=== PATIENT | female | born 1985 | race Caucasian/White ===

== ENCOUNTER 2016-11-17 08:28 | Inpatient (IN) | payer OTHER ==
[~2016-11-17] VITALS: Ht 170.2 cm; Wt 60.8 kg
[2016-11-17 20:30] VITALS: BP 124/82
[2016-11-17] MEDS ORDERED: ONDANSETRON 4 MG/2 ML VIAL IM PRN (20:30)
[2016-11-17] MEDS ORDERED: CLONIDINE HCL 0.1 MG TABLET PO PRN (20:30)
[2016-11-17] MEDS ORDERED: MAG HYDROX/AL HYDROX/SIMETH 30 ML LIQUID UDC PO PRN (20:30)
[2016-11-17] MEDS ORDERED: IBUPROFEN 600 MG TABLET PO PRN (20:30)
[2016-11-17] MEDS ORDERED: ACETAMINOPHEN 325 MG TABLET PO PRN (20:30)
[2016-11-17] MEDS ORDERED: BUPRENORPHINE HCL 2 MG TAB.SUBL SL PRN (20:30)
[2016-11-17] MEDS ORDERED: LOPERAMIDE HCL 2 MG CAPSULE PO PRN ×2 (20:30)
[2016-11-17] MEDS ORDERED: diphenhydrAMINE 50 MG CAPSULE PO PRN (20:30)
[2016-11-17] MEDS ORDERED: HYDROXYZINE PAMOATE 25 MG CAPSULE PO PRN (20:30)
[2016-11-17] MEDS ORDERED: LORAZEPAM 2 MG/1 ML VIAL IM PRN (20:30)
[2016-11-17] MEDS ORDERED: METHOCARBAMOL 750 MG TABLET PO PRN (20:30)
[2016-11-17] MEDS ORDERED: MAGNESIUM HYDROXIDE 30 ML LIQUID UDC PO PRN (20:30)
[2016-11-17] MEDS ORDERED: DICYCLOMINE HCL 20 MG TABLET PO PRN (20:30)
[2016-11-17] MEDS ORDERED: LORAZEPAM 1 MG TABLET PO PRN ×2 (20:30)
[2016-11-17] MEDS ORDERED: MIRALAX 17 GM POWD.PACK PO PRN (20:30)
--- NOTE | 2016-11-17 20:30 | NUR ---
Pre-Admission Note Patient was seen in intake office. Patient is noted to be slightly restless and verbalizing increased anxiety. V/S noted as: 124/82, 99, 98.0, 18, 99%, 0/10. Policies on medication disposal explained and understood by patient. Will continue with admission process to unit.
[2016-11-17 21:18] LABS: *URINE HCG, QUAL NEGATIVE (NEGATIVE)
[2016-11-17] MEDS ORDERED: LORAZEPAM 1 MG TABLET ONE (21:29)
[2016-11-17] MEDS ORDERED: LORAZEPAM 1 MG TABLET PO ONE (21:30)
--- NOTE | 2016-11-17 21:30 | NUR ---
Admission Patient is a 31 year old female, from [facility], presented to [facility] to safely received treatment for her substance use. She was escorted on to unit at 2050 by intake department. Skin check and body check rendered with no skin break down noted. Patient was able to provide urine drug screen upon arrival to the unit. Patient is alert and oriented x4. Breathing is even and non labored. Patients height noted at 5'7 and weight noted at 134lbs. Patient verbalized no known allergies, wishes to be full code, following a regular diet. Speech is clear and able to make good eye contact. Patient is noted to be slightly restless and verbalizing increased anxiety but is cooperative with admission process. Lung sounds clear with no cough noted. LBM noted 11/17/16. BUE and BLE all noted WNL with no edema noted. Patient is ambulatory with no assistance needed. Patient denies suicidal and homicidal ideations. Patient is able to verbalizes past medical history of anxiety and depression both diagnosed in 2004. Patients home medications reconciled. Patient verbalizes her use as: Heroin, since the age of 27, but recently relapsed a little over a month ago, using 1GM Via inhalation, with last use prior to admission 1900 using 1GM. Methamphetamines, patient explained its only when its around. Last use 11/15/16 ETOH, its more of a social thing. Last use 11/15/16 Patient is able to verbalize signs and symptoms of withdrawal as "the classic symptoms, nausea, vomiting, restless legs, chills, sweats, headaches." patient reports treatment history x3 with last one noted to be FMI in [facility] in Sep 2016. Admission COWS 2 and CIWA 1. Patient was seen and examined by Dr. Chapin with Ativan 2mg to be given. All information reviewed with Dr. Chapin. PRN Medications for increased signs and symptoms of withdrawal. Labs to be rendered, taper medications to start 11/18/16. Will administer medications accordingly. All needs attended to promptly. Will continue plan of care as ordered.
[2016-11-17 21:34] LABS: *AMPHETAMINE, URINE POSITIVE (NEGATIVE); *BARBITURATE, URINE NEGATIVE (NEGATIVE); *CANNABINOID, URINE NEGATIVE (NEGATIVE); *COCCAINE, URINE NEGATIVE (NEGATIVE); *OPIATE, URINE POSITIVE (NEGATIVE); *PHENCYCLIDINE SCREEN,URINE NEGATIVE (NEGATIVE)
[2016-11-17] MEDS ORDERED: BUSP10TA3 PO (21:38)
[2016-11-17] MEDS ORDERED: METH-406 PO (21:38)
[2016-11-17] MEDS ORDERED: HYDR50CA PO (21:38)
[2016-11-17] MEDS ORDERED: AZEL50GE5 TP (21:38)
--- NOTE | 2016-11-17 21:45 | NUR ---
Medication Administration Patient given 1x dose of Ativan 2mg as per orders for verbalized increased anxiety. CIWA 1 and COWS 2. Will continue to monitor.
[2016-11-17 21:54] LABS: BASOPHILS # (AUTO) 0.1 K/uL (0.0-8.0); BASOPHILS % (AUTO) 0.7 % (0.0-2.0); EOSINOPHILS % (AUTO) 0.3 % (0.0-7.0); HEMOGLOBIN 13.4 G/DL (12.0-16.0); LYMPHOCYTES % (AUTO) 24.8 % (20.5-51.5); MEAN CORPUSCULAR HEMOGLOBIN 28.3 UUG (27.0-31.0); MEAN CORPUSCULAR HGB CONC 34 g/dL (32.0-37.0); MEAN CORPUSCULAR VOLUME 84.6 FL (81.0-99.0); MONOCYTES % (AUTO) 7.8 % (0.0-11.0); NEUTROPHILS # (AUTO) 8.1 K/UL (1.8-8.9); NEUTROPHILS % (AUTO) 66.4 % (38.5-71.5); PLATELET COUNT (AUTO) 335 K/UL (150-450); RED BLOOD CELL COUNT(AUTO) 4.73 MIL/UL (4.2-5.4); WHITE BLOOD COUNT (AUTO) 12.2 K/UL (4.0-11.2)
[2016-11-17 22:07] LABS: ALANINE AMINOTRANSFERASE 20 U/L (14-59); ALKALINE PHOSPHATASE 72 U/L (50-136); ASPARTATE AMINOTRANSFERASE 15 U/L (15-37); BILIRUBIN,TOTAL 0.3 mg/dL (0.2-1.0); CARBON DIOXIDE 28 mmol/L (21-32); CHLORIDE 104 mmol/L (98-107); GLUCOSE 108 mg/dL (74-106); MAGNESIUM 1.7 mg/dL (1.8-2.4); POTASSIUM 3.4 mmol/L (3.5-5.1); TOTAL PROTEIN, SERUM 7.4 g/dL (6.4-8.2); UREA NITROGEN, BLOOD 14 mg/dL (7-18)
[2016-11-17 23:16] LABS: ETHANOL < 3 MG/DL (0-0)
[2016-11-18 00:20] VITALS: BP 106/63
[2016-11-18 04:47] VITALS: BP 110/68
--- NOTE | 2016-11-18 07:04 | NUR ---
End of Shift Patient is in bed sleeping but easily aroused to verbal stimuli. Breathing even and non labored. No signs of pain or discomfort noted. Patient is a 31 year old female admitted on 11/17/16 for Opiate Dependence under the care of Dr. Chapin. A modified 4 day Subutex taper ordered to start 11/18/16 0900. No known allergies. Full Code. Regular Diet. Placed on fall precautions. Skin noted intact. Patient verbalizes past medical history of anxiety and depression. Patient received one time dose of Ativan 2mg upon admission for increased anxiety. Admission COWS 2 and CIWA 1. All needs attended to promptly. Will endorse to continue plan of care as ordered. Addendum: 11/18/16 at 0704 by LUCY GTOTLIEB LVN Amended: Links added.
[2016-11-18] MEDS ORDERED: NAPH15DR62 OP (07:30)
--- NOTE | 2016-11-18 07:30 | NUR ---
START OF SHIFT Pt is a 31 yr old female, A&Ox3. Pt was admitted last night on 11/17/16 for Opiate Dependence and is to start on 4 day Subutex taper today on 11/18/16. Pt is full code, regular diet and NKA. Received report from assembler 1st shift nurse. Pt slept for 9 hours during the night. Last COWS was 2 at 2100. Pt is currently in bed resting with respirations even and unlabored. Pt is c/o back pain 08/28. Facial grimacing is observed. Encouraged increase fluid intake. Pt denies any n/v. Safety precautions observed. Call light is within reach. Will continue to monitor.
[2016-11-18 08:00] VITALS: BP 107/70
[2016-11-18] MEDS: BUPRENORPHINE HCL 2 MG TAB.SUBL SL SCH ×3 (08:30→20:47)
[2016-11-18] MEDS: MULTIVITAMINS,THERAPEUTIC TABLET PO SCH (08:30)
[2016-11-18] MEDS ORDERED: ESCI20TA PO (08:35)
[2016-11-18] MEDS ORDERED: TUBERCULIN,PURIF.PROT.DERIV. 5 TU/0.1 ML TEST ID ONE (09:00)
[2016-11-18] MEDS ORDERED: GABAPENTIN 300 MG CAPSULE PO SCH (09:00)
[2016-11-18] MEDS ORDERED: ESCITALOPRAM OXALATE 30 MG PO SCH (10:45)
[2016-11-18] MEDS: busPIRone 10 MG TABLET PO SCH ×2 (11:00→16:55)
[2016-11-18] MEDS: ARIPIPRAZOLE 2 MG TABLET PO SCH (11:00)
[2016-11-18 12:00] VITALS: BP 127/91
[2016-11-18] MEDS ORDERED: LORAZEPAM 1 MG TABLET PO PRN ×2 (12:15)
--- NOTE | 2016-11-18 12:30 | NUR ---
COMMUNICATION Report to Dr. Chapin in regards to abnormal labs. K+ 3.4 and Mg 1.7. With NO for Potassium Chloride 30meq x1 and Mag-Ox 400mg PO x1. New order initiated by . Will continue to f/u.
[2016-11-18] MEDS ORDERED: POTASSIUM CHLORIDE 10 MEQ CAPSULE.SA PO ONE (13:00)
[2016-11-18] MEDS ORDERED: MAGNESIUM OXIDE 400 MG TABLET PO ONE (13:00)
[2016-11-18] MEDS: DICYCLOMINE HCL 20 MG TABLET PO SCH ×2 (14:37→20:47)
[2016-11-18] MEDS: BACLOFEN 10 MG TABLET PO SCH ×2 (14:37→20:47)
[2016-11-18] MEDS: GABAPENTIN 300 MG CAPSULE PO SCH ×2 (14:37→20:47)
[2016-11-18] MEDS: ONDANSETRON ODT 4 MG TAB.RAPDIS SL PRN ×2 (14:42→20:47)
--- NOTE | 2016-11-18 14:42 | NUR ---
PRN GIVEN Pt was observed with x3 episodes of emesis. Zofran 4mg SL PRN was given as ordered. Medication rene well. Encouraged increase fluid intake. Will continue to monitor.
--- NOTE | 2016-11-18 15:42 | NUR ---
PRN RE-ASSESSMENT Zofran PRN was effective. Pt denies any n/v. Encouraged increase fluid intake. Will continue to monitor.
[2016-11-18 16:00] VITALS: BP 137/89
--- NOTE | 2016-11-18 18:54 | NUR ---
END OF SHIFT Pt is a 31 yr old female, A&Ox4. Pt was admitted on 11/17/16 for Opiate Dependence and started on 4 day Subutex taper. Pt is full code, regular diet and NKA. Pt has been cooperative with plan of care and attended group sessions. Pt has been cooperative with medication regimen. Zofran 4mg SL PRN was given at 1442 for episodes of vomiting. Medication was effective. Skin is intact, warm and moist to touch. No tremors seen or felt. Last COWS score was 4, CIWA score was 2 at 1600. Encouraged increase fluid intake. Pt denies any n/v. Safety precautions observed. Call light is within reach.
--- NOTE | 2016-11-18 19:15 | NUR ---
Start of Shift Patient Received. Patient is in bed awake, alert and verbally responsive. Patient is a 31 year old female admitted on 11/17/16 for Opiate Dependence under the care of Dr. Chapin. Patient was started on a 4 day Subutex taper. No known allergies. Full Code. Regular Diet. Placed on fall precautions. Skin noted intact. Patient verbalizes past medical history of anxiety and depression. Potassium and Magnesium supplemented. Patient was given PRN Zofran for increased nausea. PPD administered to left forearm. Last noted COWS 4 and CIWA 2. All needs attended to promptly. Will endorse to continue plan of care as ordered.
[2016-11-18 20:08] VITALS: BP 126/85
[2016-11-18] MEDS: CLONIDINE HCL 0.1 MG TABLET PO SCH (20:47)
--- NOTE | 2016-11-18 20:47 | NUR ---
PRN Medication Administration Patient is verbalizing increased nausea with one episode of emesis. Patient also noted with CIWA of 13 with increase tremors, anxiety, and agitation. PRN Zofran and PRN Ativan 1mg administered as per order. Will continue to monitor
--- NOTE | 2016-11-18 22:00 | NUR ---
PRN Medication Reassessment Patient is noted in bed watching TV. Patient is able to verbalize PRN Zofran was effective in minimizing nausea. Patient also noted with a CIWA of 1. PRN Ativan 1mg noted to be effective. Will continue to monitor. Addendum: 11/18/16 at 2207 by LUCY GOTTLIEB LVN Amended: Links added.
[2016-11-19 00:33] VITALS: BP 93/52
[2016-11-19 04:41] VITALS: BP 92/56
--- NOTE | 2016-11-19 07:02 | NUR ---
End of Shift Patient is in bed sleeping. Breathing even and non labored. No signs of pain or discomfort noted. Patient is a 31 year old female admitted on 11/17/16 for Opiate Dependence under the care of Dr. Chapin. Patient continues on a 4 day Subutex taper. No known allergies. Full Code. Regular Diet. Placed on fall precautions. Skin noted intact. Patient verbalizes past medical history of anxiety and depression. Patient was given PRN Zofran for increased nausea and PRN Ativan 1mg for CIWA 13. Last noted COWS 10 and CIWA 13. Patient slept a total of 8 hours. All needs attended to promptly. Will endorse to continue plan of care as ordered.
--- NOTE | 2016-11-19 07:33 | NUR ---
START OF SHIFT Pt is a 31 yr old female, A&Ox3. Pt was admitted on 11/17/16 for Opiate Dependence and is on 4 day Subutex taper today on 11/18/16. Pt is full code, regular diet and NKA. Received report from film processing shift supervisor nurse. Pt received Ativan PRN and Zofran PRN during the night. medication was effective. Pt slept for 8 hours. Last COWS was 10 at 2000 and CIWA score 1 at 2200. Pt is currently in bed resting with respirations even and unlabored. Skin is intact, warm and dry to touch. Encouraged increase fluid intake. Pt denies any n/v. Safety precautions observed. Call light is within reach. Will continue to monitor.
[2016-11-19 08:12] VITALS: BP 93/51
[2016-11-19] MEDS: CLONIDINE HCL 0.1 MG TABLET PO SCH (08:46)
[2016-11-19] MEDS: busPIRone 10 MG TABLET PO SCH ×2 (08:46→16:59)
[2016-11-19] MEDS: MULTIVITAMINS,THERAPEUTIC TABLET PO SCH (08:47)
[2016-11-19] MEDS: DICYCLOMINE HCL 20 MG TABLET PO SCH ×3 (08:47→20:55)
[2016-11-19] MEDS: BACLOFEN 10 MG TABLET PO SCH (08:47)
[2016-11-19] MEDS: ARIPIPRAZOLE 2 MG TABLET PO SCH (08:47)
[2016-11-19] MEDS: GABAPENTIN 300 MG CAPSULE PO SCH ×3 (08:47→20:55)
[2016-11-19] MEDS: ESCITALOPRAM OXALATE 10 MG TABLET PO SCH (08:47)
[2016-11-19] MEDS ORDERED: BUPRENORPHINE HCL 2 MG TAB.SUBL SL SCH (09:00)
[2016-11-19] MEDS ORDERED: LORAZEPAM 1 MG TABLET PO PRN ×3 (10:00→13:45)
--- NOTE | 2016-11-19 10:20 | NUR ---
Therapist prompted client for groups. Client stated she will attend groups if she is not so tired later.
[2016-11-19 11:06] LABS: HEPATITIS B SURFACE AG Negative (Negative)
[2016-11-19 12:00] VITALS: BP 101/68
[2016-11-19] MEDS: BUPRENORPHINE HCL 2 MG TAB.SUBL SL SCH ×2 (14:24→21:02)
--- NOTE | 2016-11-19 14:24 | NUR ---
PRN GIVEN Pt reported of x1 emesis and continue to feel nauseous. Zofran 4mg IM PRN was given as ordered. Medication rene well. Encouraged increase fluid intake. Will continue to monitor.
--- NOTE | 2016-11-19 14:58 | NUR ---
PRN RE-ASSESSMENT Zofran IM PRN was effective. Pt denies any n/v. Encouraged increase fluid intake. Will continue to monitor.
[2016-11-19 16:00] VITALS: BP 103/68
--- NOTE | 2016-11-19 18:51 | NUR ---
END OF SHIFT Pt is a 31 yr old female, A&Ox4. Pt was admitted on 11/17/16 for Opiate Dependence and is on 4 day Subutex taper. Pt is full code, regular diet and NKA. Pt has been cooperative with plan of care and attended group sessions. Pt has been cooperative with medication regimen. Zofran 4mg IM PRN was given at for episodes of vomiting. Medication was effective. Pt denies any n/v. Skin is intact, warm and moist to touch. Slight tremors are observed. Pt denies any pain. Last COWS score was 6, CIWA score was 3 at 1600. Encouraged increase fluid intake. Safety precautions observed. Call light is within reach.
[2016-11-19 20:00] VITALS: BP 109/66
--- NOTE | 2016-11-19 20:00 | NUR ---
START OF SHIFT Patient is a 31-year-old female admitted 11/17/16 for opiate dependence, placed on a modified Subutex taper. Patient reports smoking 1 gram of heroin daily, methamphetamines only when available, and alcohol socially. Past medical history of anxiety and depression. Pt is NKA, FULL CODE, on a regular diet, and fall precautions. Upon assessment, patient reports feeling fatigued, skin is noted with moderate sweat, pt reports mild body aches, respirations even and unlabored, denies SOB and chest pain, denies N/V/D, skin is intact. Medications due. Safety measures in place, call light in place, siderails up x2, bed locked and in low position. Will continue to monitor.
[2016-11-19] MEDS: BACLOFEN 20 MG TABLET PO SCH (20:55)
[2016-11-19] MEDS ORDERED: CLONIDINE HCL 0.1 MG TABLET PO SCH (21:00)
--- NOTE | 2016-11-19 21:30 | NUR ---
MEDICATION REFUSAL Patient refused scheduled Clonidine 0.1mg. Education provided, risks and benefits explained x3. Safety measures in place, will continue to monitor.
--- NOTE | 2016-11-20 | NUR ---
VITAL SIGNS Patient vital signs as follows: BP 100/61, HR , RR 16, 98%, 97.4 F, no pain. COWS/CIWA deferred due to patient sleeping. To assess while patient is awake as ordered. Safety measures in place, will continue to monitor.
[2016-11-20 00:01] VITALS: BP 100/61
[2016-11-20 04:00] VITALS: BP 103/68
--- NOTE | 2016-11-20 04:00 | NUR ---
VITAL SIGNS BP 103/68, HR 68, RR 16, O2 sat 98%, temp. 98.8 F, pain 0/10. CIWA/COWS deferred, patient sleeping, to assess while patient is awake as ordered. Safety measures in place, will continue to monitor.
--- NOTE | 2016-11-20 07:00 | NUR ---
END OF SHIFT Patient is a 31-year-old female admitted 11/17/16 for opiate dependence, placed on a modified Subutex taper. Patient reports smoking 1 gram of heroin daily, methamphetamines only when available, and alcohol socially. Past medical history of anxiety and depression. Pt is NKA, FULL CODE, on a regular diet, and fall precautions. During shift, patient reported feeling fatigued, skin is noted with moderate sweat, pt reported mild body aches, scheduled taper medications were administered. CIWA 2 COWS 3. No PRN medication administered during shift. Scheduled Clonidine 0.1mg refused. Education provided. Patient slept for 7 hours, intake 1000mL, void x2, stool x1. Safety measures in place, call light in place, siderails up x2, bed locked and in low position. Endorsed to day shift nurse.
[2016-11-20 08:00] VITALS: BP 116/68
--- NOTE | 2016-11-20 08:07 | NUR ---
START OF SHIFT Pt is a 31 yr old female, A&Ox3. Pt was admitted on 11/17/16 for Opiate Dependence and is on 4 day Subutex taper. Pt is full code, regular diet and NKA. Received report from overnight cashier nurse. Pt slept for 7 hours. Last COWS was 3, CIWA score was 2 at 2000. No PRN's were given during the night. Pt is currently in bed resting with respirations even and unlabored. No acute distress noted. Skin is intact, warm and dry to touch. Encouraged increase fluid intake. Pt denies any n/v. Safety precautions observed. Call light is within reach. Will continue to monitor.
[2016-11-20] MEDS: ONDANSETRON ODT 4 MG TAB.RAPDIS SL PRN (08:54)
--- NOTE | 2016-11-20 08:54 | NUR ---
PRN GIVEN/MEDICATION REFUSED Pt is c/o nausea but denies any episodes of vomiting. Zofran 4mg SL PRN was given as ordered. Encouraged increase fluid intake. Pt refused to take Subutex 2mg SL as ordered at 0900. Pt states, "it makes me feel sick" Pt was educated on medication regimen. Pt was able to verbalize understanding, but continues to refuse. Dr. Chapin is made aware.
[2016-11-20] MEDS: GABAPENTIN 300 MG CAPSULE PO SCH ×3 (08:56→20:44)
[2016-11-20] MEDS: DICYCLOMINE HCL 20 MG TABLET PO SCH ×3 (08:56→20:44)
[2016-11-20] MEDS: busPIRone 10 MG TABLET PO SCH ×2 (08:56→18:04)
[2016-11-20] MEDS: ESCITALOPRAM OXALATE 10 MG TABLET PO SCH (08:56)
[2016-11-20] MEDS: ARIPIPRAZOLE 2 MG TABLET PO SCH (08:56)
[2016-11-20] MEDS: FAMOTIDINE 20 MG TABLET PO SCH (08:56)
[2016-11-20] MEDS: MULTIVITAMINS,THERAPEUTIC TABLET PO SCH (08:56)
[2016-11-20] MEDS: BACLOFEN 20 MG TABLET PO SCH ×3 (08:56→20:44)
[2016-11-20] MEDS: BUPRENORPHINE HCL 2 MG TAB.SUBL SL SCH ×2 (09:00→14:04)
--- NOTE | 2016-11-20 10:02 | NUR ---
PRN REASSESSMENT Zofran PRN was effective. Pt denies any n/v. Encouraged increase fluid intake. Will continue to monitor.
[2016-11-20 12:00] VITALS: BP 119/75
--- NOTE | 2016-11-20 14:31 | NUR ---
MEDICATION REFUSED/ENDORSEMENT GIVEN Pt refused to take Subutex 2mg SL as scheduled at 1500. Pt was educated medication regimen but states "It makes me feel sick" COWS score is 2, CIWA score is 3. Pt is c/o mild headache and mild nausea with no episodes of vomiting. Pt was offered Zofran 4mg IM PRN or Zofran 4 mg SL PRN for nausea and Motrin 400mg PO PRN headache. Pt refused medication and stated, "I don't want to keep taking meds" Anna tomasz and saltine crackers were given. Pt was appreciated. Dr. Chapin is made aware. Endorsed to RN nurse to continue with care.
[2016-11-20 16:56] VITALS: BP 122/76
--- NOTE | 2016-11-20 18:57 | NUR ---
D/C NOTE 31 yr old female admitted on 11/17/16 for Opiate Dependence and is on 4 day Subutex taper. Pt is full code, regular diet and NKA. No PRNs administered throughout shift. Pt refused meds aware, pt is medically stable for discharge. Most recent COWS 2 and CIWA 1. V/S remain WNL. Safety precautions observed. Call light is within reach. Night nurse will continue to monitor.
[2016-11-20] MEDS ORDERED: METH-406 PO (19:07)
[2016-11-20] MEDS ORDERED: HYDR-3895 PO (19:07)
[2016-11-20] MEDS ORDERED: DIPH50CA37 PO (19:07)
[2016-11-20] MEDS ORDERED: GABA-534 PO (19:07)
[2016-11-20] MEDS ORDERED: ONDA4TAB11 SL (19:07)
[2016-11-20] MEDS ORDERED: ARIP2TAB3 PO (19:07)
[2016-11-20] MEDS ORDERED: FAMO20TA8 PO (19:07)
[2016-11-20] MEDS ORDERED: DICY20TA28 PO (19:07)
[2016-11-20] MEDS ORDERED: ESCI10TA PO (19:07)
[2016-11-20] MEDS ORDERED: IBUP-1955 PO (19:07)
[2016-11-20 20:00] VITALS: BP 122/82
--- NOTE | 2016-11-20 20:00 | NUR ---
Start of Shift Pt is a 31 year old female admitted for Opiate dependence, placed on Subutex taper, completed. Pt reported using Heroin via smoke 1g/daily. Reported using Methamphetamine only when available and ETOH socially. NKA, regular diet, fall precautions and full code. PMH: Anxiety and depression. Upon assessment, pt reports feeling mildly anxious with mild body aches. Respirations even/unlabored, denies SOB/chest pain, denies n/v/d, skin is intact. Medications due. Pt is scheduled for discharge tomorrow. Safety measures in place, call light within reach, side rails up x2, bed locked and in low position. Will continue to monitor.
--- NOTE | 2016-11-20 20:50 | NUR ---
PRN Administration Pt requests aid to help her sleep. Benadryl 50mg PRN administered. Safety measures in place. Will continue to monitor.
--- NOTE | 2016-11-20 21:50 | NUR ---
PRN Reassessment Pt is asleep, no s/s of acute distress noted. respirations even/unlabored. Safety measures in place. Will continue to monitor.
[2016-11-21] VITALS: BP 113/66
--- NOTE | 2016-11-21 | NUR ---
Vital Signs BP 113/66, pulse 72, resp 17, SpO2 99% room air, temp 98, no reports of pain COWS/CIWA deferred d/t pt sleeping, to assess while pt is awake as ordered. Safety measures in place. Will continue to monitor.
--- NOTE | 2016-11-21 04:00 | NUR ---
Pt refused to be woken up for 0400 VS Assessment COWS/CIWA deferred d/t pt sleeping, to assess while pt is awake as ordered. Safety measures in place. Will continue to monitor.
--- NOTE | 2016-11-21 07:00 | NUR ---
End of Shift Pt is a 31 year old female admitted for Opiate dependence, placed on Subutex taper, completed. Pt reported using Heroin via smoke 1g/daily. Reported using Methamphetamine only when available and ETOH socially. NKA, regular diet, fall precautions and full code. PMH: Anxiety and depression. During shift, pt reported feeling mildly anxious with mild body aches scheduled medications administered, effective in management of s/s, CIWA 1 and COWS 1. Benadryl 50mg PRN administered for sleep, effective. Pt slept for 7 hours, intake of 855 ml PO, voids x2 and stool x0. Pt is scheduled for discharge today. Safety measures in place, call light within reach, side rails up x2, bed locked and in low position. Endorsed to days shift nurse.
--- NOTE | 2016-11-21 07:01 | NUR ---
Start of Shift Notes: Received patient in her room. Alert and verbally responsive. Oriented x 4. Able to make needs known. Respirations even and unlabored. No SOB noted. Skin warm and dry to touch. Abdomen soft and non-distended with (+) BS in all 4 quadrants. No complains of N/V/D or constipation noted at this time. Bladder non-distended. No complains of dysuria noted. Voids independently. Ambulatory ad annemarie with steady gait. Patient is a 31 year old female admitted for opiate and meth dependence who was placed on a 4-day modified Subutex taper as ordered. No adverse reactions noted. Patient completed taper and will be discharging today. Has past medical hx of anxiety and depression. NKA. FULL CODE. Regular diet. On fall and seizure precautions. Educated patient on the discharge process. Patient verbalized good understanding. Will continue to monitor.
[2016-11-21 08:00] VITALS: BP 115/80
[2016-11-21] MEDS: FAMOTIDINE 20 MG TABLET PO SCH (08:14)
[2016-11-21] MEDS: ARIPIPRAZOLE 2 MG TABLET PO SCH (08:14)
[2016-11-21] MEDS: ESCITALOPRAM OXALATE 10 MG TABLET PO SCH (08:14)
[2016-11-21] MEDS: GABAPENTIN 300 MG CAPSULE PO SCH (08:14)
[2016-11-21] MEDS: MULTIVITAMINS,THERAPEUTIC TABLET PO SCH (08:14)
[2016-11-21] MEDS: busPIRone 10 MG TABLET PO SCH (08:14)
[2016-11-21] MEDS: BACLOFEN 20 MG TABLET PO SCH (08:14)
[2016-11-21] MEDS: ONDANSETRON ODT 4 MG TAB.RAPDIS SL PRN (08:14)
[2016-11-21] MEDS: DICYCLOMINE HCL 20 MG TABLET PO SCH (08:14)
--- NOTE | 2016-11-21 08:14 | NUR ---
Zofran 4 mg SL given/Motrin 600 mg PO given: Patient complains of nausea and 4//10 headache. Medicated patient with Zofran 4 mg SL and Motrin 600 mg PO as ordered. Will monitor for effectiveness.
[2016-11-21] MEDS ORDERED: BUPRENORPHINE HCL 2 MG TAB.SUBL SL SCH (09:00)
--- NOTE | 2016-11-21 09:00 | NUR ---
Discharge Instructions: Patient education provided regarding patient's discharge instructions. Patient verbalized good understanding of all teachings. All discharge paperwork necessary were signed and placed inside duffel bag. All clothings, medications and valuables were returned to the patient. VS stable. COWS 3/CIWA 3.
--- NOTE | 2016-11-21 09:18 | NUR ---
Re-assessment: Per patient PRN Vistaril and Motrin were highly effective in reducing headache and nausea.
--- NOTE | 2016-11-21 09:30 | NUR ---
Discharged: Patient left the unit at this time. Escorted by RECEIVABLES SPECIALIST. Patient left with medications, valuables, toiletries and clothings in stable condition. Picked up by [facility] to be transported to [facility].
== END 2016-11-21 09:30 | disposition other institution (70) | DRG 895 ==
LOC: SRC 19:47
PROVIDERS: ADMIT Internal Medicine; ATTEND Internal Medicine
PROC: HZ2ZZZZ Detoxification Services for Substance Abuse Treatment (ICD-10-PCS; principal; 2016-11-17)
PROC: HZ41ZZZ Group Counseling for Substance Abuse Treatment, Behavioral (ICD-10-PCS; 2016-11-18)
PROC: HZ31ZZZ Individual Counseling for Substance Abuse Treatment, Behavioral (ICD-10-PCS; 2016-11-19)
DX: F11.23 Opioid dependence with withdrawal (principal); F33.2 Major depressive disorder, recurrent severe without psychotic features; F15.10 Other stimulant abuse, uncomplicated; F41.9 Anxiety disorder, unspecified; Z81.3 Family history of other psychoactive substance abuse and dependence; F17.210 Nicotine dependence, cigarettes, uncomplicated; F10.10 Alcohol abuse, uncomplicated; Y90.9 Presence of alcohol in blood, level not specified; E87.6 Hypokalemia; E83.42 Hypomagnesemia; Z79.899 Other long term (current) drug therapy; R73.9 Hyperglycemia, unspecified; D72.829 Elevated white blood cell count, unspecified
CPT/HCPCS: 36415; 70030-TC; 80307; 80324; 80361; 83735; 84703; 85025; 86580; 86592; 86705; 86803; 87340; 87806; A4663; G0480; J2405; Q0162; Q0163

== ENCOUNTER 2017-01-17 15:06 | Inpatient (IN) | payer OTHER ==
[~2017-01-17] VITALS: Ht 170.2 cm; Wt 65.8 kg
[~2017-01-17 15:06] MED LIST: ARIP2TAB3 PO; BUSP10TA3 PO; DICY20TA28 PO; DIPH50CA37 PO; ESCI10TA PO; ESCI20TA PO; FAMO20TA8 PO; GABA-534 PO; HYDR-3895 PO; IBUP-1955 PO; METH-406 PO; ONDA4TAB11 SL
[2017-01-17 16:28] LABS: *URINE HCG, QUAL NEGATIVE (NEGATIVE)
[2017-01-17] MEDS ORDERED: MAG HYDROX/AL HYDROX/SIMETH 30 ML LIQUID UDC PO PRN (16:30)
[2017-01-17] MEDS ORDERED: LORAZEPAM 2 MG/1 ML VIAL IM PRN (16:30)
[2017-01-17] MEDS ORDERED: HYDROXYZINE PAMOATE 25 MG CAPSULE PO PRN (16:30)
[2017-01-17] MEDS ORDERED: BUPRENORPHINE HCL 2 MG TAB.SUBL SL PRN (16:30)
[2017-01-17] MEDS ORDERED: MIRALAX 17 GM POWD.PACK PO PRN (16:30)
[2017-01-17] MEDS ORDERED: LOPERAMIDE HCL 2 MG CAPSULE PO PRN ×2 (16:30)
[2017-01-17] MEDS ORDERED: ONDANSETRON 4 MG/2 ML VIAL IM PRN (16:30)
[2017-01-17] MEDS ORDERED: ACETAMINOPHEN 325 MG TABLET PO PRN (16:30)
[2017-01-17] MEDS ORDERED: METHOCARBAMOL 750 MG TABLET PO PRN (16:30)
[2017-01-17] MEDS ORDERED: LORAZEPAM 1 MG TABLET PO PRN (16:30)
[2017-01-17] MEDS ORDERED: MAGNESIUM HYDROXIDE 30 ML LIQUID UDC PO PRN (16:30)
[2017-01-17] MEDS ORDERED: diphenhydrAMINE 50 MG CAPSULE PO PRN (16:30)
[2017-01-17 16:40] LABS: *AMPHETAMINE, URINE POSITIVE (NEGATIVE); *BARBITURATE, URINE NEGATIVE (NEGATIVE); *CANNABINOID, URINE NEGATIVE (NEGATIVE); *COCCAINE, URINE NEGATIVE (NEGATIVE); *OPIATE, URINE POSITIVE (NEGATIVE); *PHENCYCLIDINE SCREEN,URINE NEGATIVE (NEGATIVE)
[2017-01-17] MEDS ORDERED: LORAZEPAM 1 MG TABLET PO ONE (16:45)
[2017-01-17 17:00] VITALS: BP 128/74
[2017-01-17] MEDS: CLONIDINE HCL 0.1 MG TABLET PO PRN (17:23)
[2017-01-17] MEDS: ONDANSETRON ODT 4 MG TAB.RAPDIS SL PRN (17:23)
--- NOTE | 2017-01-17 18:06 | NUR ---
Admission Note VS: BP: 128/74 HR: 85, SpO2: 99% RA, RR: 16, Temp: 97.9 Pain: 3 Height:5'7" Weight: 145LB Allergies: ENRIKE Pt is a 31 y/o female admitted to [facility] on 01/17/17 at 1600. Pt has been admitted for Heroin, Meth and Alcohol dependence under the care of Dr. Chapin. Pt reports occasional use of Xanax. Pt denies suicidal and homicidal ideations at this time. Pt denies Chest Pain and SOB. Pt did not bring home medications with her. Pt reports living with at sober living. Upon assessment skin integrity is intact. Pt denies experiencing any falls in the last year. COWS 7, CIWA 5 upon admission for mild anxiety, chills, sweats and nausea. A/Ox4 and able to answer questions necessary for the admission process. Pt denies having a PCP. Full Code. VS WNL, Regular Diet. Pt reports Regular Diet. Pt denies Hx of seizures. Pt denies any history of suicide attempts. Breathing is even and unlabored, SpO2 is 99% on RA. Pt ambulates with steady gait. Pt reports regular daily BM. Pt reports smoking half a pack of cigarettes a day. Urine has been collected for UDS and test. All needs have been met. Pt has been oriented to the room and the unit. All safety measures in place per hospital policy. Bed in lowest position, side rails up x2 and padded, call-light within reach. Will continue to monitor. Substance Abuse: 1. Heroin: IV 1g daily for 5 days. Last Use: 01/16/17 1g at 2200 2. Alcohol: drinks 1 pint of vodka daily for 5 days. Last use: 01/16/17 1pint of vodka at 2200 3. Meth: smokes "$20 worth" daily for 5 days. Last use: 01/17/17 in am 4. Xanax: reports occasionally using Xanax, used once in the last five days, can't remember when.
--- NOTE | 2017-01-17 19:05 | NUR ---
End of Shift Endorsed pt to nightshift nurse. Pt is a 31 y/o female admitted to [facility] on 01/17/17 at 1600. Pt has been admitted for Heroin, Meth and Alcohol dependence under the care of Dr. Chapin. Pt reports occasional use of Xanax. Pt denies suicidal and homicidal ideations at this time. Pt denies Chest Pain and SOB. Pt did not bring home medications with her. Pt reports living with at sober living. Upon assessment skin integrity is intact. Pt denies experiencing any falls in the last year. COWS 7, CIWA 5 upon admission for mild anxiety, chills, sweats and nausea. Pt has received PRN clonidine and Zofran and one time dose of Ativan 2mg per Dr. Chapin .A/Ox4 and able to answer questions necessary for the admission process. Pt denies having a PCP. Full Code. VS WNL, Regular Diet. Pt reports Regular Diet. Pt denies Hx of seizures. Pt denies any history of suicide attempts. Breathing is even and unlabored, SpO2 is 99% on RA. Pt ambulates with steady gait. Pt reports regular daily BM. Pt reports smoking half a pack of cigarettes a day. Urine has been collected for UDS and test. All needs have been met. Pt has been oriented to the room and the unit. All safety measures in place per hospital policy. Bed in lowest position, side rails up x2 and padded, call-light within reach. Will continue to monitor. Substance Abuse: 1. Heroin: IV 1g daily for 5 days. Last Use: 01/16/17 1g at 2200 2. Alcohol: drinks 1 pint of vodka daily for 5 days. Last use: 01/16/17 1pint of vodka at 2200 3. Meth: smokes "$20 worth" daily for 5 days. Last use: 01/17/17 in am 4. Xanax: reports occasionally using Xanax, used once in the last five days, can't remember when.
--- NOTE | 2017-01-17 19:15 | NUR ---
START OF SHIFT Received 31 year old female patient admitted on 01/17/17 for Heroin, Methamphetamine, and ETOH dependency. Pt is full code with NKA. She denies any PMhx. She reports using Heroin IV 1 gram daily for 5 days. Last dose was 1 gram IV on 01/16/17, Methamphetamine (smoke) $20 worth for 5 days. Last dose was 1 bowl on 01/16/17. ETOH 1 pint of vodka daily for 5 days. Last dose was 1 pint on 01/16/17. Pt denies any history of seizure. She is currently not on a taper but has PRN medications available. Pt currently sleeping, responds to nurses greeting. She is alert and oriented x4, breathing even and unlabored. Safety measures in place. Will monitor.
[2017-01-17 20:00] VITALS: BP 97/62
[2017-01-17 20:18] LABS: BASOPHILS # (AUTO) 0.1 K/uL (0.0-8.0); BASOPHILS % (AUTO) 0.8 % (0.0-2.0); EOSINOPHILS # (AUTO) 0.2 K/uL (0.0-0.7); EOSINOPHILS % (AUTO) 1.8 % (0.0-7.0); HEMATOCRIT 33.4 % (37-47); HEMOGLOBIN 11.3 G/DL (12.0-16.0); LYMPHOCYTES # (AUTO) 1.5 K/UL (0.8-4.8); LYMPHOCYTES % (AUTO) 15.1 % (20.5-51.5); MEAN CORPUSCULAR HEMOGLOBIN 28.4 UUG (27.0-31.0); MEAN CORPUSCULAR HGB CONC 34 g/dL (32.0-37.0); MEAN CORPUSCULAR VOLUME 83.9 FL (81.0-99.0); MONOCYTES # (AUTO) 0.7 K/UL (0.1-1.30); MONOCYTES % (AUTO) 7.2 % (0.0-11.0); NEUTROPHILS # (AUTO) 7.5 K/UL (1.8-8.9); NEUTROPHILS % (AUTO) 75.1 % (38.5-71.5); PLATELET COUNT (AUTO) 254 K/UL (150-450); RED BLOOD CELL COUNT(AUTO) 3.98 MIL/UL (4.2-5.4)
[2017-01-17 20:40] LABS: ALANINE AMINOTRANSFERASE 25 U/L (14-59); ALKALINE PHOSPHATASE 61 U/L (50-136); ASPARTATE AMINOTRANSFERASE 20 U/L (15-37); BILIRUBIN,TOTAL 0.4 mg/dL (0.2-1.0); CARBON DIOXIDE 29 mmol/L (21-32); CHLORIDE 105 mmol/L (98-107); CREATININE 0.9 mg/dL (0.6-1.3); GLUCOSE 125 mg/dL (74-106); POTASSIUM 4.2 mmol/L (3.5-5.1); TOTAL PROTEIN, SERUM 6.2 g/dL (6.4-8.2); UREA NITROGEN, BLOOD 10 mg/dL (7-18)
[2017-01-17 21:00] LABS: ETHANOL < 3 MG/DL (0-0)
[2017-01-17] MEDS: LORAZEPAM 1 MG TABLET PO PRN (21:00)
[2017-01-17] MEDS: GABAPENTIN 400 MG CAPSULE PO SCH (21:00)
--- NOTE | 2017-01-17 21:03 | NUR ---
PRN SUBUTEX/ATIVAN Pt complains of anxiety, restlessness, agitation, body aches and diaphoresis. COWS:12, CIWA:9. PRN Subutex and Ativan administered as ordered. Breathing even and unlabored. Safety measures in place. Will monitor effectiveness.
--- NOTE | 2017-01-17 22:03 | NUR ---
PRN REASSESSMENT PRN medications effective. Pt lying in bed with eyes closed noted to be asleep. No facial grimacing noted. Breathing even and unlabored. Safety measures in place. Will monitor
[2017-01-18] VITALS: BP 111/71
[2017-01-18] MEDS: CLONIDINE HCL 0.1 MG TABLET PO PRN ×3 (00:34→15:49)
--- NOTE | 2017-01-18 00:34 | NUR ---
PRN CLONIDINE Pt complains of anxiety/agitation. PRN Clonidine administered as ordered. Breathing even and unlabored. Safety measures in place. Will monitor.
--- NOTE | 2017-01-18 01:34 | NUR ---
PRN REASSESSMENT PRN medication effective. Pt lying in bed with eyes closed noted to be asleep. Respirations 16, breathing even and unlabored. Will continue to monitor.
--- NOTE | 2017-01-18 02:23 | NUR ---
PRN BENADRYL Pt reports insomnia and complains of not being able to stay asleep. Pt noted to be drinking coffee and tea at this time. Educated pt on drinking caffeinated beverages during bedtime and encouraged water. Pt verbalized understanding. PRN Benadryl administered as ordered. Will monitor effectiveness.
--- NOTE | 2017-01-18 03:23 | NUR ---
PRN BENADRYL REASSESSMENT PRN medication is effective. Pt is lying in bed with eyes closed noted to be asleep. Respirations 16, breathing is even and unlabored. Safety measures in place. Will monitor.
--- NOTE | 2017-01-18 07:24 | NUR ---
END OF SHIFT Pt is a 31 year old female patient admitted on 01/17/17 for Heroin, Methamphetamine, and ETOH dependency. Pt is full code with NKA. She denies any PMHx. She is currently not on a taper but has PRN medications available. At 2100 she received PRN Subutex and Ativan. At 0034 she received PRN Clonidine, and at 0220 she received PRN Benadryl. She slept a total of 7 hrs, Intake: 1700mL, Void: x2, BM: x1. COWS:6, CIWA:4. Pt remains alert and oriented x4, breathing even and unlabored. Safety measures in place. Endorsed to AM shift.
--- NOTE | 2017-01-18 07:45 | NUR ---
START OF SHIFT Rcvd endorsement from ongoing nurse, client is in room, she is a/o x 4. Client presents with depressed mood, flat affect, and clammy skin. She reports feeling tired after a night sleep, decreased appetite, restless legs, and chills. Encourage client to attend to group therapy for skills to maintain sober. Encourage client to increase PO fluid intake as tolerated to facilitate detox. Client is a 31 y/o female, admitted to [facility] for withdrawal from heroin, alcohol, and alprazolam. She has PRN Subutex 4mg for COWS =>12 Q4H, Ativan 1mg PO PRN Q4H for CIWA 5-9. Client rcvd PRN medications and noted per protocol. She slept 7 hrs. She denies a hx of withdrawal-induced seizures, Client reports NKA, she is full code, regular diet. Side rails x 2 up/padded for seizure precautions. Call light within reach.
[2017-01-18 08:00] VITALS: BP 109/67
[2017-01-18] MEDS ORDERED: TUBERCULIN,PURIF.PROT.DERIV. 5 TU/0.1 ML TEST ID ONE (09:00)
[2017-01-18] MEDS: MULTIVITAMINS,THERAPEUTIC TABLET PO SCH (09:31)
[2017-01-18] MEDS: THIAMINE HCL 100 MG TABLET PO SCH (09:31)
[2017-01-18] MEDS: FOLIC ACID 1 MG TABLET PO SCH (09:31)
[2017-01-18] MEDS: GABAPENTIN 400 MG CAPSULE PO SCH ×4 (09:31→20:15)
--- NOTE | 2017-01-18 09:31 | NUR ---
TB Test administered to L forearm, client tolerated well.
[2017-01-18] MEDS: DICYCLOMINE HCL 20 MG TABLET PO PRN ×2 (09:41→15:49)
[2017-01-18] MEDS: LORAZEPAM 1 MG TABLET PO PRN (09:41)
--- NOTE | 2017-01-18 09:41 | NUR ---
PRN Ativan 1mg PO, Clonidine 0.1mg PO, Bentyl 20mg PO administered for CIWA 5, anxiety, irritability, chills and abdominal spasms respectively. Call light within reach.
--- NOTE | 2017-01-18 10:30 | NUR ---
Reassessment PRN Ativan 1mg PO, Clonidine 0.1mg PO, Bentyl 20mg PO administered for CIWA 2, client appears less anxious, less irritable, she reports relief from chills and abdominal spasms respectively. Call light within reach.
[2017-01-18 12:00] VITALS: BP 120/82
[2017-01-18] MEDS: BUPRENORPHINE HCL 2 MG TAB.SUBL SL SCH ×2 (12:41→20:15)
[2017-01-18] MEDS: ESCITALOPRAM OXALATE 10 MG TABLET PO SCH (13:35)
[2017-01-18] MEDS: busPIRone 10 MG TABLET PO SCH ×2 (13:35→16:23)
[2017-01-18] MEDS: IBUPROFEN 600 MG TABLET PO PRN (15:49)
--- NOTE | 2017-01-18 15:49 | NUR ---
PRN Motrin 600mg PO, Clonidine 0.1mg PO, Bentyl 20mg PO administered for PERRIN 7/10, anxiety, irritability, chills and abdominal spasms respectively. Call light within reach
[2017-01-18 16:00] VITALS: BP 125/82
--- NOTE | 2017-01-18 16:49 | NUR ---
Reassessment PRN Motrin 600mg PO, Clonidine 0.1mg PO, Bentyl 20mg PO client reports relief from PERRIN 0/10, less anxious, less irritable and relief from chills and abdominal spasms. Call light within reach
--- NOTE | 2017-01-18 17:22 | NUR ---
THerapist prompted to come to group today.
--- NOTE | 2017-01-18 19:15 | NUR ---
START OF SHIFT Received 31 year old female patient admitted on 01/17/17 for Heroin, Methamphetamine, and ETOH dependency. Pt is full code with NKA. She denies any PMhx. She reports using Heroin IV 1 gram daily for 5 days. Last dose was 1 gram IV on 01/16/17, Methamphetamine (smoke) $20 worth for 5 days. Last dose was 1 bowl on 01/16/17. ETOH 1 pint of vodka daily for 5 days. Last dose was 1 pint on 01/16/17. She is currently receiving a 3 day Ativan and 3 day Subutex taper and tolerating well. Per endorsement, she received PRN Clonidine, Ativan, Bentyl, Subutex and Motrin. Pt is alert and oriented x4, breathing even and unlabored. Safety measures in place. Will monitor.
--- NOTE | 2017-01-18 19:26 | NUR ---
END OF SHIFT Client is a 31 y/o female, admitted to [facility] for withdrawal from heroin, alcohol, and alprazolam. She Iis on 3 day Subutex taper, tolerating well. Last COWS 7/ CIWA 4 @ 1600. PRN Motrin 600mg PO, Clonidine 0.1mg PO, Bentyl 20mg PO administered for PERRIN 7/10, anxiety, irritability, chills and abdominal spasms. PRN Ativan 1mg PO, Clonidine 0.1mg PO, Bentyl 20mg PO administered for CIWA 5, anxiety, irritability, chills and abdominal spasms respectively, noted effective. Client not compliant with group therapy. She denies a hx of withdrawal-induced seizures, Client reports NKA, she is full code, regular diet. Side rails x 2 up/padded for seizure precautions. Call light within reach.
[2017-01-18 20:00] VITALS: BP 126/81
[2017-01-18] MEDS: ARIPIPRAZOLE 2 MG TABLET PO SCH (20:14)
[2017-01-18] MEDS: ONDANSETRON ODT 4 MG TAB.RAPDIS SL PRN (20:15)
--- NOTE | 2017-01-18 20:15 | NUR ---
PRN ZOFRAN Pt complains of nausea with no episode of vomiting. PRN Zofran administered as ordered. Safety measures in place. Will monitor effectiveness.
[2017-01-18] MEDS ORDERED: LORAZEPAM 1 MG TABLET PO SCH (21:00)
--- NOTE | 2017-01-18 21:15 | NUR ---
PRN ZOFRAN REASSESSMENT PRN medication effective. Pt reports decrease in nausea.
[2017-01-19] VITALS: BP 115/75
--- NOTE | 2017-01-19 | NUR ---
COWS/CIWA DEFERRED Pt lying in bed with eyes closed noted to be asleep. Breathing even and unlabored, respirations 16. Safety measures in place. Will monitor.
--- NOTE | 2017-01-19 04:00 | NUR ---
COWS/CIWA DEFERRED Pt lying in bed with eyes closed noted to be asleep. Breathing even and unlabored, respirations 16. Safety measures in place. Will monitor.
[2017-01-19 06:06] LABS: HEPATITIS B SURFACE AG Negative (Negative)
--- NOTE | 2017-01-19 07:04 | NUR ---
END OF SHIFT Pt is a 31 year old female patient admitted on 01/17/17 for Heroin, Methamphetamine, and ETOH dependency. Pt is full code with NKA. She denies any PMHx. She continues on a 3 day Ativan and 3 day Subutex taper and tolerating well. She received PRN Zofran at 2014. She slept a total of 6hrs, Intake:1210mL, Void: x3, BM:x2, COWS:9, CIWA:5. Pt remains alert and oriented x4, breathing even and unlabored. Safety measures in place. Will endorse to AM shift.
[2017-01-19 08:00] VITALS: BP 124/95
--- NOTE | 2017-01-19 08:00 | NUR ---
START OF SHIFT RECEIVED PT A/O X4, RESPIRATIONS EVEN AND EQUAL. PT REPORTS INTERMITTENT CHILLS ANDS SWEATING, MODERATE ANXIETY, BODY ACHES. TREMORS ARE SEEN. PT IS ON A 3 DAY ATIVAN AND 3 DAY SUBUTEX TAPER AND TOLERATING WELL. PT SLEPT A TOTAL OF 6 HRS. SAFETY MEASURES TAKEN, WILL CONTINUE TO MONITOR.
[2017-01-19] MEDS: ESCITALOPRAM OXALATE 10 MG TABLET PO SCH (08:36)
[2017-01-19] MEDS: busPIRone 10 MG TABLET PO SCH ×2 (08:36→16:04)
[2017-01-19] MEDS: FOLIC ACID 1 MG TABLET PO SCH (08:36)
[2017-01-19] MEDS: LORAZEPAM 1 MG TABLET PO SCH ×3 (08:36→20:45)
[2017-01-19] MEDS: GABAPENTIN 400 MG CAPSULE PO SCH (08:36)
[2017-01-19] MEDS: THIAMINE HCL 100 MG TABLET PO SCH (08:36)
[2017-01-19] MEDS: BUPRENORPHINE HCL 2 MG TAB.SUBL SL SCH ×3 (08:39→20:45)
[2017-01-19] MEDS: MULTIVITAMINS,THERAPEUTIC TABLET PO SCH (08:39)
[2017-01-19] MEDS: CLONIDINE HCL 0.1 MG TABLET PO PRN ×2 (08:44→14:50)
--- NOTE | 2017-01-19 08:44 | NUR ---
PRN PT C/O OF ANXIETY, IRRITABILITY, CHILLS, SWEATING AND REQUESTED FOR CLONIDINE. ADMINISTERED CLONIDINE 0.1 MG PO PRN AT 0844
--- NOTE | 2017-01-19 09:44 | NUR ---
REASSESSMENT PRN PT STATED THE CLONIDINE WAS EFFECTIVE AT REASSESSMENT.
[2017-01-19 12:00] VITALS: BP 105/65
[2017-01-19] MEDS: GABAPENTIN 300 MG CAPSULE PO SCH ×3 (12:12→20:45)
--- NOTE | 2017-01-19 14:34 | NUR ---
Therapist prompted to go to group today. Client agreed to attend.
--- NOTE | 2017-01-19 14:50 | NUR ---
PRN Clonidine 0.1mg PO administered for anxiety, irritability. Call light within reach. Will continue to monitor.
--- NOTE | 2017-01-19 15:50 | NUR ---
Reassessment PRN Clonidine 0.1mg PO, client appears less anxious and less irritable, she is able to join peers at the patio. Call light within reach. Will continue to monitor.
[2017-01-19 16:00] VITALS: BP 138/84
[2017-01-19 16:55] VITALS: BP 117/76
--- NOTE | 2017-01-19 19:27 | NUR ---
END OF SHIFT PT A/O X4, RESPIRATIONS EVEN AND EQUAL. PT REPORTS INTERMITTENT CHILLS ANDS SWEATING, MODERATE ANXIETY, BODY ACHES AND RESTLESSNESS. MILD TREMORS NOTED. VSS. PT IS ON A 3 DAY ATIVAN AND 3 DAY SUBUTEX TAPER AND TOLERATING WELL. PT HAS BEEN GIVEN CLONIDINE 0.1 MG PO PRN FOR ANXIETY AT 1450 AND STATED MEDICATION WAS EFFECTIVE UPON REASSESSMENT. SAFETY MEASURES TAKEN. SIDE RAILS UP X2, CALL LIGHT WITHIN REACH. WILL GIVE ENDORSEMENT AND ALL PERTINENT INFO TO VERIFYING MACHINE OPERATOR NURSE.
--- NOTE | 2017-01-19 19:30 | NUR ---
START OF SHIFT Patient is a 31-year-old female admitted on 01/17/17 for heroin and ETOH withdrawal, and history of meth use. Patient has past medical history of anxiety and depression. Patient is FULL code, NKA, and on a regular diet. Patient has no history of falls or seizures. Patient is on a modified Ativan taper, and a 3-day Subutex taper, tolerating well. Upon assessment, patient is alert and oriented x4, complaining of mild nausea and some backache. Patient is on fall and seizure precautions, safety measures in place. Patients bed is locked in low position, side rails up x2, call light within reach. Will continue to monitor.
[2017-01-19 20:00] VITALS: BP 108/75
[2017-01-19] MEDS: ONDANSETRON ODT 4 MG TAB.RAPDIS SL PRN (20:44)
[2017-01-19] MEDS: ARIPIPRAZOLE 2 MG TABLET PO SCH (20:45)
[2017-01-19] MEDS: CLONIDINE HCL 0.1 MG TABLET PO SCH (20:45)
[2017-01-19] MEDS: IBUPROFEN 600 MG TABLET PO PRN (20:45)
--- NOTE | 2017-01-19 20:45 | NUR ---
PRN ZOFRAN AND MOTRIN Patient reports nausea and back pain of 6/10. PRN Zofran and Motrin given PO. Patient's respirations are 16/min, even and unlabored. Safety measures in place, bed locked in low position, side rails up x2, call light with in reach. Will reassess in 30 min, and 60 min, respectively. Addendum: 01/20/17 at 0110 by DEBBIE URRUTIA LVN PRN Zofran given SL.
--- NOTE | 2017-01-19 21:15 | NUR ---
PRN ZOFRAN REASSESSMENT Patient was given PRN Zofran SL 30 min. ago. Pt reports nausea has improved; PRN Zofran effective. Patient's respirations are 16/min, even and unlabored. Safety measures in place, bed locked in low position, side rails up x2, call light with in reach. Will continue to monitor.
--- NOTE | 2017-01-19 21:45 | NUR ---
PRN MOTRIN REASSESSMENT Patient reports back pain has improved from 6/10 to 2/10; PRN Motrin effective. Patient's respirations are 16/min, even and unlabored. Safety measures in place, bed locked in low position, side rails up x2, call light with in reach. Will continue to monitor.
[2017-01-20] VITALS: BP 114/75
--- NOTE | 2017-01-20 | NUR ---
MIDNIGHT COWS AND CIWA DEFERRED Midnight COWS and CIWA deferred due to patient asleep; to be assessed and scored while patient is awake per protocol. Patient's respirations are 16/min, even and unlabored. Safety measures in place, bed locked in low position, side rails up x2, call light with in reach. Will continue to monitor.
[2017-01-20 04:00] VITALS: BP 94/65
--- NOTE | 2017-01-20 04:00 | NUR ---
4AM COWS AND CIWA DEFERRED 4AM COWS and CIWA deferred due to patient asleep; to be assessed and scored while patient is awake per protocol. Patient's respirations are 16/min, even and unlabored. Safety measures in place, bed locked in low position, side rails up x2, call light with in reach. Will continue to monitor.
--- NOTE | 2017-01-20 07:18 | NUR ---
END OF SHIFT Patient is a 31-year-old female admitted on 01/17/17 for heroin and ETOH withdrawal, and history of meth use. Patient is FULL code, NKA, and on a regular diet. Patient has no history of falls or seizures. Patient is on a modified Ativan taper, and a 3-day Subutex taper, tolerating well. Patient slept for 10 hours, total intake 1,000 mL, void x2, stool x1. Patient received PRN Motrin for back pain and PRN Zofran for nausea; both meds were effective. Last COWS score was 5, last CIWA 8. Patient is on fall and seizure precautions, safety measures in place. Patients bed is locked in low position, side rails up x2, call light within reach. Will endorse to day shift.
--- NOTE | 2017-01-20 07:30 | NUR ---
START OF SHIFT Pt 31 y/o female admitted for opiate and benzo dependence. pt received in room on bed with eyes closed resting, but easily arousable to name. Pt alert and oriented to name, place, and time. Perrla. Skin warm and dry to touch. Respirations even and unlabored. Bilateral hand tremors noted slightly. Pt appears slightly anxious this morning. Pt focused on being discharged. It was reported that pt slept for 10 hours last night. Bed on lowest position with side rails x2 up for safety. Call light within reach. No distress noted at this time.
[2017-01-20 08:00] VITALS: BP 107/78
[2017-01-20] MEDS ORDERED: LORAZEPAM 1 MG TABLET PO SCH (09:00)
[2017-01-20] MEDS ORDERED: BUPRENORPHINE HCL 2 MG TAB.SUBL SL SCH (09:00)
[2017-01-20] MEDS: IBUPROFEN 600 MG TABLET PO PRN (09:02)
[2017-01-20] MEDS: CLONIDINE HCL 0.1 MG TABLET PO SCH ×2 (09:02→21:15)
[2017-01-20] MEDS: GABAPENTIN 300 MG CAPSULE PO SCH ×4 (09:02→21:14)
[2017-01-20] MEDS: THIAMINE HCL 100 MG TABLET PO SCH (09:02)
[2017-01-20] MEDS: ESCITALOPRAM OXALATE 10 MG TABLET PO SCH (09:02)
--- NOTE | 2017-01-20 09:02 | NUR ---
PRN Pt states has headache 5/10. Motrin po prn per MD order given and tolerated well.
[2017-01-20] MEDS: MULTIVITAMINS,THERAPEUTIC TABLET PO SCH (09:03)
[2017-01-20] MEDS: FOLIC ACID 1 MG TABLET PO SCH (09:03)
[2017-01-20] MEDS: busPIRone 10 MG TABLET PO SCH ×2 (09:03→16:34)
--- NOTE | 2017-01-20 10:02 | NUR ---
PRN EVAL Pt states headache 03/31.
[2017-01-20 12:32] VITALS: BP 121/74
--- NOTE | 2017-01-20 12:35 | NUR ---
THerapist prompted client to attend group today.
[2017-01-20] MEDS ORDERED: ARIP2TAB3 PO (12:44)
[2017-01-20] MEDS ORDERED: DICY20TA28 PO (12:44)
[2017-01-20] MEDS: CLONIDINE HCL 0.1 MG TABLET PO PRN (12:44)
[2017-01-20] MEDS ORDERED: BUSP10TA3 PO (12:44)
[2017-01-20] MEDS ORDERED: METH-406 PO (12:44)
[2017-01-20] MEDS ORDERED: GABA-534 PO (12:44)
[2017-01-20] MEDS ORDERED: IBUP-1955 PO (12:44)
[2017-01-20] MEDS ORDERED: HYDR-3895 PO (12:44)
[2017-01-20] MEDS ORDERED: DIPH50CA37 PO (12:44)
[2017-01-20] MEDS ORDERED: ESCI10TA PO (12:44)
[2017-01-20] MEDS ORDERED: CLON0.1T14 PO (12:44)
--- NOTE | 2017-01-20 12:51 | NUR ---
PRN Pt states feels anxious. Catapres po prn per MD order given and tolerated well.
--- NOTE | 2017-01-20 12:52 | NUR ---
PRN Pt states has aches of neck 6/10. Robaxin po prn per MD order given and tolerated well.
--- NOTE | 2017-01-20 13:51 | NUR ---
PRN SHRADDHA Pt observed on bed with eyes closed resting, but easily arousable to name. No distress noted at this time.
--- NOTE | 2017-01-20 13:52 | NUR ---
PRN SHRADDHA Pt states pain 03/31.
[2017-01-20] MEDS: ONDANSETRON ODT 4 MG TAB.RAPDIS SL PRN (15:06)
--- NOTE | 2017-01-20 15:06 | NUR ---
PRN Pt states feels nauseous. Zofran odt prn per MD order given and tolerated well.
[2017-01-20 16:00] VITALS: BP 117/75
--- NOTE | 2017-01-20 16:06 | NUR ---
PRN EVAL Pt states nausea has stopped.
[2017-01-20] MEDS: NEOMY/BACITRAC/POLYMI OINT 28.35 GM TUBE TOP SCH (17:31)
--- NOTE | 2017-01-20 18:09 | NUR ---
END OF SHIFT Pt 31 y/o female admitted for opiate and benzo dependence. Pt alert and oriented to name, place, and time. Perrla. Skin warm and dry to touch. Respirations even and unlabored. No hand tremors noted. Pt observed mostly in recreation room throughout the day. Pt attended group activity. Pt was seen by MD today. Pt medication compliant and tolerated well. No ASE noted. Bed on lowest position with side rails x2 up for safety. Call light within reach. No distress noted at this time.
--- NOTE | 2017-01-20 19:15 | NUR ---
START OF SHIFT Received 31 year old female patient admitted on 01/17/17 for Heroin, Methamphetamine, and ETOH dependency. Pt is full code with NKA. She denies any PMhx. She reports using Heroin IV 1 gram daily for 5 days. Last dose was 1 gram IV on 01/16/17, Methamphetamine (smoke) $20 worth for 5 days. Last dose was 1 bowl on 01/16/17. ETOH 1 pint of vodka daily for 5 days. Last dose was 1 pint on 01/16/17. She completed a 3 day Ativan and 3 day Subutex taper and is scheduled to be DC tomorrow to [place]. Per endorsement, she received PRN Clonidine, Motrin and Robaxin. Pt is alert and oriented x4, breathing even and unlabored. Safety measures in place. Will monitor.
[2017-01-20 20:00] VITALS: BP 135/92
[2017-01-20] MEDS: ARIPIPRAZOLE 2 MG TABLET PO SCH (21:15)
[2017-01-21] VITALS: BP 122/83
[2017-01-21 04:00] VITALS: BP 128/86
--- NOTE | 2017-01-21 07:19 | NUR ---
END OF SHIFT Pt is a 31 year old female patient admitted on 01/17/17 for Heroin, Methamphetamine, and ETOH dependency. Pt is full code with NKA. She denies any PMhx. She is scheduled to be DC today to [facility]. She did not receive or request PRN medications. She slept a total of 8hrs, Intake: 1680mL, Void: x3, BM:0, COWS:4, CIWA:3 Pt is alert and oriented x4, breathing even and unlabored. Safety measures in place. Endorsed to AM shift.
--- NOTE | 2017-01-21 08:02 | NUR ---
BEGINNING OF SHIFT Patient endorsement report received from shift stacker nurse, all pertinent information discussed. Patient is a 31 year old female with admitting Dx: Opiate/bzo dependence, AND Substance use of: methamphetamine. Patient completed modified ativan and 3 day subutex, patient is scheduled to be discharged this morning, noted self motivated towards sobriety. Per shift stacker patient receivedn no PRNs. Patient slept for 8 hours, last cow of 4 and last ciwa score of: 3. Educated patient on her current plan of care for the day and her medication regimen, will educate regarding all discharge instructions. Will continue to monitor. safety measures in place.
[2017-01-21 08:13] VITALS: BP 122/81
[2017-01-21] MEDS: ESCITALOPRAM OXALATE 10 MG TABLET PO SCH (08:59)
[2017-01-21 09:00] VITALS: BP 122/81
[2017-01-21] MEDS: CLONIDINE HCL 0.1 MG TABLET PO SCH (09:00)
[2017-01-21] MEDS: busPIRone 10 MG TABLET PO SCH (09:00)
[2017-01-21] MEDS ORDERED: NEOMY/BACITRAC/POLYMI OINT 28.35 GM TUBE TOP SCH (09:00)
[2017-01-21] MEDS: FOLIC ACID 1 MG TABLET PO SCH (09:00)
[2017-01-21] MEDS: MULTIVITAMINS,THERAPEUTIC TABLET PO SCH (09:00)
[2017-01-21] MEDS: GABAPENTIN 300 MG CAPSULE PO SCH (09:00)
[2017-01-21] MEDS: NEOMY/BACITRAC/POLYMI OINT 28.35 GM TUBE TOP SCH (09:01)
[2017-01-21] MEDS: THIAMINE HCL 100 MG TABLET PO SCH (09:02)
--- NOTE | 2017-01-21 09:13 | NUR ---
DISCHARGE Patient discharged at 09, patient in stable condition, not in any apparent acute distress. no s/sx of withdrawal. vital signs WNL. Patients due medications administered as ordered, well tolerated. Patient discharged to [facility] in stable condition, noted self motivated towards sobriety. Patients prescriptions, discharge instructions, and miscellaneous belongings (make up) was placed in personal duffel bag. patient off the unit at 09 in stable condition.
== END 2017-01-21 09:13 | disposition other institution (70) | DRG 895 ==
LOC: SRC 15:06
PROVIDERS: ADMIT Internal Medicine; ATTEND Internal Medicine
PROC: HZ2ZZZZ Detoxification Services for Substance Abuse Treatment (ICD-10-PCS; principal; 2017-01-17)
PROC: HZ31ZZZ Individual Counseling for Substance Abuse Treatment, Behavioral (ICD-10-PCS; 2017-01-18)
PROC: HZ41ZZZ Group Counseling for Substance Abuse Treatment, Behavioral (ICD-10-PCS; 2017-01-20)
DX: F10.230 Alcohol dependence with withdrawal, uncomplicated (principal); F11.23 Opioid dependence with withdrawal; F13.230 Sedative, hypnotic or anxiolytic dependence with withdrawal, uncomplicated; Y90.0 Blood alcohol level of less than 20 mg/100 ml; D64.9 Anemia, unspecified; F17.210 Nicotine dependence, cigarettes, uncomplicated; F41.9 Anxiety disorder, unspecified; F32.9 Major depressive disorder, single episode, unspecified; F15.10 Other stimulant abuse, uncomplicated
CPT/HCPCS: 36415; 70030-TC; 80307; 80324; 80361; 83735; 84703; 85025; 86580; 86592; 86705; 86803; 87340; 87806; G0480; Q0162; Q0163

== ENCOUNTER 2017-03-23 14:36 | Inpatient (IN) | payer OTHER ==
[~2017-03-23] VITALS: Ht 170.2 cm; Wt 68.0 kg
[~2017-03-23 14:36] MED LIST changes: +CLON0.1T14 PO; -ESCI20TA PO; -FAMO20TA8 PO; -ONDA4TAB11 SL
--- NOTE | 2017-03-23 15:10 | NUR ---
PREADMISSION Pt 31 y/o female admitted for heroin, xanax, and cocaine dependence. Pt alert and oriented to name, place, and time. Perrla. Skin warm and slightly moist to touch. Respirations even and unlabored. Bilateral hand tremors noted slightly. Pt anxious and fidgety while sitting on chair. Pt also states feels irritable. Pt also states has nausea. Pt came from home with family. Bluish-purple discoloration to right neck noted. Unit rules explained to pt with acknowledgement. Initial ciwa=8 cows=15. VS T=98.0 P=67 LU=725/81 R=16 M9=273%@RA.
--- NOTE | 2017-03-23 15:23 | NUR ---
ADMISSION Pt 31 y/o female admitted for heroin, xanax, and cocaine dependence. Pt alert and oriented to name, place, and time. Perrla. Skin warm and slightly moist to touch. Respirations even and unlabored. Bilateral hand tremors noted slightly. Pt anxious and fidgety while sitting on chair. Pt also states feels irritable. Pt also states has nausea. Pt came from home with family. Bluish-purple discoloration to right neck noted. Pt denies any SZ history. Pt was seen by . Pt started on a 5 day ativan and 5 day subutex taper. Oriented pt to room and the unit. Pt states has no PMD. Pt refuses any PNA or INFLUENZA vaccine. Education provided. substance hx: - heroin IV 1gm daily x1 month. Last used 1gm on 03/22/17. total 1 year. -Xanax po 4 mg daily [id number]. Last used 4 mg on 03/21/17. Total 10 years - Cocaine IV $20 bag x once last month. Last used around 03/07/17 $20 bag. - subutex SL . Pt was on a 7 day taper. Last used on 02/20/17. medical history: PT denies any medical history tx history: -[facility] 12/2016 -[facility] 12/2016 -[facility] 01/2017 - [facility] 02/2017
[2017-03-23] MEDS ORDERED: ESCI10TA55 PO (15:37)
[2017-03-23] MEDS ORDERED: NITR50CA PO (15:39)
[2017-03-23 16:03] LABS: *URINE HCG, QUAL NEGATIVE (NEGATIVE)
[2017-03-23] MEDS ORDERED: LORAZEPAM 2 MG/1 ML VIAL IM PRN (16:15)
[2017-03-23] MEDS ORDERED: MIRALAX 17 GM POWD.PACK PO PRN (16:15)
[2017-03-23] MEDS ORDERED: MAG HYDROX/AL HYDROX/SIMETH 30 ML LIQUID UDC PO PRN (16:15)
[2017-03-23] MEDS ORDERED: LOPERAMIDE HCL 2 MG CAPSULE PO PRN ×2 (16:15)
[2017-03-23] MEDS ORDERED: DICYCLOMINE HCL 20 MG TABLET PO PRN (16:15)
[2017-03-23] MEDS ORDERED: ACETAMINOPHEN 325 MG TABLET PO PRN (16:15)
[2017-03-23] MEDS ORDERED: MAGNESIUM HYDROXIDE 30 ML LIQUID UDC PO PRN (16:15)
[2017-03-23] MEDS ORDERED: ONDANSETRON 4 MG/2 ML VIAL IM PRN (16:15)
[2017-03-23] MEDS ORDERED: LORAZEPAM 1 MG TABLET PO PRN ×2 (16:15)
[2017-03-23] MEDS ORDERED: BUPRENORPHINE HCL 2 MG TAB.SUBL SL PRN (16:15)
[2017-03-23 16:16] LABS: *AMPHETAMINE, URINE NEGATIVE (NEGATIVE); *BARBITURATE, URINE NEGATIVE (NEGATIVE); *CANNABINOID, URINE NEGATIVE (NEGATIVE); *COCCAINE, URINE NEGATIVE (NEGATIVE); *OPIATE, URINE POSITIVE (NEGATIVE); *PHENCYCLIDINE SCREEN,URINE NEGATIVE (NEGATIVE)
[2017-03-23] MEDS: ONDANSETRON ODT 4 MG TAB.RAPDIS SL PRN (16:32)
[2017-03-23] MEDS: METHOCARBAMOL 750 MG TABLET PO PRN (16:32)
[2017-03-23] MEDS: BUPRENORPHINE HCL 2 MG TAB.SUBL SL SCH ×2 (16:32→20:25)
[2017-03-23] MEDS: LORAZEPAM 1 MG TABLET PO SCH ×2 (16:32→20:24)
--- NOTE | 2017-03-23 16:34 | NUR ---
PRN Pt with c/o body aches 07/29. Robaxin po prn per MD order given and tolerated well.
--- NOTE | 2017-03-23 16:35 | NUR ---
PRN Pt states feels nauseated. Zofran odt prn per MD order given and tolerated well.
[2017-03-23 16:53] LABS: ETHANOL < 3 MG/DL (0-0)
[2017-03-23 16:54] LABS: BASOPHILS % (AUTO) 0.5 % (0.0-2.0); EOSINOPHILS % (AUTO) 0.7 % (0.0-7.0); HEMATOCRIT 32.9 % (31.2-41.9); LYMPHOCYTES # (AUTO) 1.6 K/uL (20.0-40.0); LYMPHOCYTES % (AUTO) 24.4 % (20.5-51.5); MEAN CORPUSCULAR HEMOGLOBIN 27.7 uug (24.7-32.8); MEAN CORPUSCULAR HGB CONC 34 g/dL (32.3-35.6); MEAN CORPUSCULAR VOLUME 82.9 fL (75.5-95.3); MONOCYTES # (AUTO) 0.3 K/uL (2.0-10.0); MONOCYTES % (AUTO) 4.3 % (0.0-11.0); NEUTROPHILS # (AUTO) 4.7 K/uL (1.8-8.9); NEUTROPHILS % (AUTO) 70.1 % (38.5-71.5); PLATELET COUNT (AUTO) 219 K/uL (179-408); RED BLOOD CELL COUNT(AUTO) 3.97 MIL/uL (3.63-4.92); WHITE BLOOD COUNT (AUTO) 6.7 K/uL (3.8-11.8)
[2017-03-23 16:58] LABS: ALANINE AMINOTRANSFERASE 23 U/L (14-59); ALKALINE PHOSPHATASE 56 U/L (50-136); ASPARTATE AMINOTRANSFERASE 19 U/L (15-37); BILIRUBIN,TOTAL 0.3 mg/dL (0.2-1.0); CARBON DIOXIDE 28 mmol/L (21-32); CHLORIDE 105 mmol/L (98-107); CREATININE 0.8 mg/dL (0.6-1.3); GLUCOSE 141 mg/dL (74-106); MAGNESIUM 1.9 mg/dL (1.8-2.4); POTASSIUM 3.7 mmol/L (3.5-5.1); TOTAL PROTEIN, SERUM 6.8 g/dL (6.4-8.2); UREA NITROGEN, BLOOD 8 mg/dL (7-18)
--- NOTE | 2017-03-23 17:34 | NUR ---
PRN EVAL Pt states body aches 05/29.
--- NOTE | 2017-03-23 17:35 | NUR ---
PRN EVAL Pt states does not feel nauseated.
--- NOTE | 2017-03-23 18:46 | NUR ---
END OF SHIFT Pt 31 y/o female admitted for heroin, xanax, and cocaine dependence. Pt alert and oriented to name, place, and time. Perrla. Skin warm and moist to touch. Respirations even and unlabored. Bilateral hand tremors noted. Pt states feels irritable. Pt appears anxious and restless in room. Pt was seen by MD today. Pt medication compliant and tolerated well. No ASE noted. Bed on lowest position with side rails x2 up for safety. Call light within reach.
--- NOTE | 2017-03-23 19:15 | NUR ---
START OF SHIFT Received 31 year old female patient admitted on 03/23/17 for Heroin, Xanax, Cocaine and Subutex dependency. Pt is full code with NKA. She reports using Heroin IV 1 gram daily for 1 month. Last dose was 1 gram on 03/22/17. Xanax PO 4 mg daily for 1 month. Last dose was 4 mg on 03/21/17. Cocaine IV 1 oz one time on 03/17/17 and Subutex at [facility] on 02/20/17. She is receiving a 5 day Ativan and 5 day Subutex taper and tolerating well. Per endorsement, she received PRN Zofran and Robaxin. Pt's MRSA results still pending. Pt is alert and oriented x4, breathing is even and unlabored. Safety measures in place. Will continue to monitor.
[2017-03-23 20:00] VITALS: BP 111/80
[2017-03-23] MEDS: CLONIDINE HCL 0.1 MG TABLET PO PRN (20:24)
--- NOTE | 2017-03-23 20:24 | NUR ---
PRN CLONIDINE Pt complains of anxiety/agitation and diaphoresis. PRN Clonidine administered as ordered. Safety measures in place. Will continue to monitor effectiveness.
[2017-03-23] MEDS: GABAPENTIN 300 MG CAPSULE PO SCH (20:25)
--- NOTE | 2017-03-23 21:24 | NUR ---
PRN CLONIDINE REASSESSMENT PRN medication effective. Pt reports feeling more calm and less anxious/agitated. Will continue to monitor.
--- NOTE | 2017-03-24 | NUR ---
VITALS REFUSED, COWS/CIWA DEFERRED 0000 vitals refused. COWS and CIWA deferred d/t pt lying in bed with eyes closed noted to be asleep. Safety measures in place. Will continue to monitor.
--- NOTE | 2017-03-24 04:00 | NUR ---
VITALS REFUSED, COWS/CIWA DEFERRED 0400 vitals refused. COWS and CIWA deferred d/t pt lying in bed with eyes closed noted to be asleep. Safety measures in place. Will continue to monitor.
[2017-03-24] MEDS: IBUPROFEN 600 MG TABLET PO PRN ×2 (05:31→08:29)
--- NOTE | 2017-03-24 05:31 | NUR ---
PRN MOTRIN Pt complains of pain upon urination. Pt states " I have a UTI" PRN Motrin administered as ordered for pain. Will monitor effectiveness.
--- NOTE | 2017-03-24 06:31 | NUR ---
PRN MOTRIN REASSESSMENT PRN medication effective. Pt lying in bed with eyes closed noted to be asleep. Safety measures in place. Will continue to monitor.
--- NOTE | 2017-03-24 07:04 | NUR ---
END OF SHIFT Pt is lying in bed with eyes closed and is asleep. She continues on a 5 day Ativan and 5 day Subutex taper. She received PRN Clonidine for anxiety and at 0531 she complained of pain during urination, PRN Motrin was administered. Will endorse to notify MD regarding pain upon urination. Pt remained alert and oriented x4 throughout the shift. Safety measures in place. Endorsed to AM shift.
--- NOTE | 2017-03-24 07:38 | NUR ---
Start of shift- Rcvd endorsement from ongoing nurse. Pt is 31 y/o female admitted for Heroin, Xanax and cocaine dependence. Pt is lying in bed with eyes closed, appears to be sleeping. Resp even and unlabored. Pt on a 5 day Ativan and 5 day Subutex taper, started 03/23/17. At 1999 COWS 10, CIWA 8. She received PRN Clonidine for anxiety and at 05 she complained of pain during urination, PRN Motrin was administered. Will notify MD regarding pain upon urination. NKA, full code, regular diet. Safety measures in place. Bed lowest/locked position, side rails up X2, call light with in reach. Addendum: 03/24/17 at 0753 by Ayana Leal RN Will continue to monitor signs and symptoms of withdrawal.
[2017-03-24 08:00] VITALS: BP 121/85
[2017-03-24] MEDS: GABAPENTIN 300 MG CAPSULE PO SCH ×3 (08:28→21:24)
[2017-03-24] MEDS: METHOCARBAMOL 750 MG TABLET PO PRN (08:29)
[2017-03-24] MEDS: LORAZEPAM 1 MG TABLET PO SCH ×3 (08:29→21:24)
[2017-03-24] MEDS: BUPRENORPHINE HCL 2 MG TAB.SUBL SL SCH ×3 (08:29→21:24)
--- NOTE | 2017-03-24 08:29 | NUR ---
PRN Catapress 0.1mg PO for anxiety and chills. PRN Robaxin 750mg PO for myalgias, PRN Motrin 600 mg PO for generalized pain.
[2017-03-24] MEDS: CLONIDINE HCL 0.1 MG TABLET PO PRN ×2 (08:30→16:30)
[2017-03-24] MEDS ORDERED: TUBERCULIN,PURIF.PROT.DERIV. 5 TU/0.1 ML TEST ID ONE (09:00)
--- NOTE | 2017-03-24 09:30 | NUR ---
Reassess- PRN Robaxin and Motrin effective. Pt states myalgias and pain decreased to #2/10. Catapress not effective, pt reports she still feels anxious.
[2017-03-24] MEDS: HYDROXYZINE PAMOATE 25 MG CAPSULE PO PRN ×2 (09:55→16:24)
[2017-03-24] MEDS: ONDANSETRON ODT 4 MG TAB.RAPDIS SL PRN (09:55)
--- NOTE | 2017-03-24 09:57 | NUR ---
PRN Zofran 4 mg fast tabs PO for nausea. PRN vistaril 25 mg po for anxiety.
[2017-03-24] MEDS: NITROFURANTOIN/NITROFURAN MAC 100 MG CAPSULE PO SCH ×2 (10:19→21:24)
--- NOTE | 2017-03-24 10:57 | NUR ---
Reasses PRN Zofran, pt states nausea improved, medication effective. PRN Vistaril for anxiety, pt states anxiety not improved and ineffective. Dr. Valle making rounds to assess patient.
[2017-03-24] MEDS ORDERED: LORAZEPAM 1 MG TABLET PO PRN ×2 (11:30)
--- NOTE | 2017-03-24 11:50 | NUR ---
Urine collection clean catch for UA/C&S, sent to lab
[2017-03-24 12:00] VITALS: BP 127/86
--- NOTE | 2017-03-24 12:50 | NUR ---
PRN Ativan 1mg PO for CIWA 8
--- NOTE | 2017-03-24 13:50 | NUR ---
Reassess Ativan 1 mg PO, CIWA now 6, medication effective.
[2017-03-24 14:30] LABS: *BILIRUBIN,URIN NEGATIVE (NEGATIVE); *BLOOD, URINE 3+ (NEGATIVE); *CLARITY,URINE CLOUDY (CLEAR); *COLOR,URINE YELLOW (YELLOW); *KETONES,URINE TRACE (NEGATIVE); *PROTEIN,URINE 2+ (NEGATIVE); LEUKOCYTE ESTERASE ,URINE 3+ (NEGATIVE); NITRITE, URINE NEGATIVE (NEGATIVE); UGLUCOSE NEGATIVE (NEGATIVE)
--- NOTE | 2017-03-24 15:15 | NUR ---
Therapist prompted client to attend daily group therapy sessions. Client stated that she would attend the next session.
[2017-03-24 15:48] LABS: BACTERIA,URINE FEW /HPF (NONE SEEN); SQUAMOUS EPITHELIAL CELL,UR FEW /HPF (NONE SEEN); WBC,URINE 50-80 /HPF (0-3)
[2017-03-24 16:00] VITALS: BP 110/66
--- NOTE | 2017-03-24 16:21 | NUR ---
ECG performed, normal sinus rhythm.
--- NOTE | 2017-03-24 16:30 | NUR ---
PRN Pt states feels really anxious. Catapres po prn per MD order given and tolerated well.
--- NOTE | 2017-03-24 16:30 | NUR ---
PRN Pt states feels anxious. Vistaril po prn per MD order given and tolerated well.
--- NOTE | 2017-03-24 18:33 | NUR ---
End of shift- Pt is 31 y/o female admitted for Heroin, Xanax and cocaine dependence. Pt presents with flat affect and depressed mood. Pt is on a 5 day Ativan and 5 day Subutex taper, started 03/23/17. At 1600 COWS 5, CIWA 6. PRN medications administered per MD orders. She complained of pain during urination, and was started on Macrobid 100 mg PO Q12. Urine for UA, C&S collected. ECG ordered to start Lexapro tomorrow, result normal sinus rhythm. Pt participated in group therapy 2 out of 3 and was visible on the unit. NKA, full code, regular diet. Adequate PO fluid intake of 2151 ml, voids X 5, no BM. Safety measures in place. Bed lowest/locked position, side rails up X2, call light within reach. Will endorse to oncoming nurse.
--- NOTE | 2017-03-24 19:12 | NUR ---
Start of shift note Received report from day shift nurse. Pt is a 31 yo female, A+Ox4, presenting to [facility] for Opiate/Benzo dependence. Pt has NKA, is on Full code status, and on Regular diet. Pt has no medical HX to report. Pt is on Fall and Seizure precautions. Pt is on 5 day Subutex and 5 day Ativan tapers, tolerated well. No s/s of distress noted at this time. Respirations even and unlabored. Will continue to monitor.
[2017-03-24 20:24] VITALS: BP 122/81
[2017-03-24] MEDS: DOXEPIN 100 MG CAPSULE PO SCH (21:24)
[2017-03-25] VITALS (7 sets, daily range): BP systolic 113–128; BP diastolic 71–84
--- NOTE | 2017-03-25 06:57 | NUR ---
End of shift note Pt is a 31 yo female, A+Ox4, presenting to [facility] for Opiate/Benzo dependence. Pt has NKA, is on Full code status, and on Regular diet. Pt has no medical HX to report. Pt is on Fall and Seizure precautions. Pt is on 5 day Subutex and 5 day Ativan tapers, tolerated well. No PRNs given. Pt slept for a total of 7 HRS. Last COWS: 4 and Last CIWA: 4 @0400. No s/s of distress noted at this time. Respirations even and unlabored. Will endorse to day shift nurse.
--- NOTE | 2017-03-25 07:10 | NUR ---
Start of shift note Received report from night nurse. Pt is a 31 yo female, presenting to [facility] for Opiate/Benzo withdrawal. Pt has NKA, is on Full code status, and on Regular diet. Pt has no medical HX to report. Pt is on Fall and Seizure precautions. Pt is on 5 day Subutex and 5 day Ativan tapers, tolerated well. No PRN medications required or requested on PM shift, Last COWS 4 CIWA 4 @0400. Patient is asleep in bed at this time, Respirations even and unlabored. Will continue to monitor and follow MD plan of care.
[2017-03-25] MEDS: GABAPENTIN 300 MG CAPSULE PO SCH ×3 (08:35→20:37)
[2017-03-25] MEDS: ESCITALOPRAM OXALATE 10 MG TABLET PO SCH (08:35)
[2017-03-25] MEDS: NITROFURANTOIN/NITROFURAN MAC 100 MG CAPSULE PO SCH ×2 (08:35→20:37)
[2017-03-25] MEDS: LORAZEPAM 1 MG TABLET PO SCH ×3 (08:35→20:38)
[2017-03-25] MEDS: CLONIDINE HCL 0.1 MG TABLET PO PRN ×2 (08:40→21:15)
--- NOTE | 2017-03-25 08:40 | NUR ---
PRN CLONIDINE CLONIDINE 0.1MG PO GIVEN FOR PATIENT COMPLAINTS OF ANXIETY, WILL CONTINUE TO MONITOR
[2017-03-25] MEDS ORDERED: BUPRENORPHINE HCL 2 MG TAB.SUBL SL SCH (09:00)
--- NOTE | 2017-03-25 09:40 | NUR ---
REASSESS PRN PATIENT STATES CLONIDINE 0.1MG PO EFFECTIVE IN REDUCING HER ANXIETY, WILL CONTINUE TO MONITOR.
[2017-03-25 10:11] LABS: HEPATITIS B SURFACE AG Negative (Negative)
[2017-03-25] MEDS: ONDANSETRON ODT 4 MG TAB.RAPDIS SL PRN (12:19)
[2017-03-25] MEDS: HYDROXYZINE PAMOATE 25 MG CAPSULE PO PRN (12:19)
[2017-03-25] MEDS: METHOCARBAMOL 750 MG TABLET PO PRN (12:19)
--- NOTE | 2017-03-25 12:20 | NUR ---
PRN MEDICATIONS PRN ZOFRAN 4MG SL GIVEN FOR COMPLAINTS OF NAUSEA, ROBAXIN 750MG PO GIVEN FOR BACK PAIN/SPASM 6/10 PAIN AND VISTARIL 25MG PO GIVEN FOR ANXIETY, WILL CONTINUE TO MONITOR AND REASSESS.
--- NOTE | 2017-03-25 13:18 | NUR ---
PRN REASSESS PATIENT STATES HER NAUSEA HAS GONE AND SHE WAS ABLE TO EAT LUNCH SO ZOFRAN 4 MG SL WAS EFFECTIVE, PAIN 2/10 NOW AND PATIENT STATES SHE FEELS LESS ANXIOUS SO ROBAXIN 750MG PO AND VISTARIL 25MG PO EFFECTIVE IN REDUCING SYMPTOMS, CONTINUE TO MONITOR, BED IN LOW LOCKED POSITION WITH SIDE RAILS UP X 2.
[2017-03-25] MEDS: BUPRENORPHINE HCL 2 MG TAB.SUBL SL SCH ×2 (14:20→20:38)
--- NOTE | 2017-03-25 14:24 | NUR ---
PRN MIRALAX 17GM POWDER PO MIRALAX GIVEN TO PATIENT PER REQUEST FOR CONSTIPATION, WILL CONTINUE TO MONITOR
--- NOTE | 2017-03-25 15:24 | NUR ---
PRN MIRALAX NO RESULTS YET, WILL CONTINUE TO MONITOR
--- NOTE | 2017-03-25 18:53 | NUR ---
End of shift note: Patient is a 31 year old female, presenting to [facility] for Opiate/Benzo withdrawal. Pt has NKA, is on Full code status, and on Regular diet. Pt has no medical history to report. Pt is on Fall and Seizure precautions. Pt is on a 5 day Subutex and 5 day Ativan tapers and this is day 3, tolerated well. PRN medications given on this shift : Clonidine 0.1mg PO , Zofran 4 mg SL , Robaxin 750mg PO , Vistaril 25mg PO and Miralax 17gm powder PO. Last COWS 8 CIWA 7 @1600. Patient had a fluid intake of 2302 ML , 7 voids and 1 BM. Patient has stayed in room all afternoon resting, VS stable BP 113/71 HR 71 RR 16 T98.3 Bed in low locked position with side rails up x 2 and call light within reach. Will continue to monitor and follow MD plan of care. Endorsed to Night nurse.
--- NOTE | 2017-03-25 19:15 | NUR ---
START OF SHIFT Received 31 year old female patient admitted on 03/23/17 for Heroin, Xanax, Cocaine and Subutex dependency. Pt is full code with NKA. She reports using Heroin IV 1 gram daily for 1 month. Last dose was 1 gram on 03/22/17. Xanax PO 4 mg daily for 1 month. Last dose was 4 mg on 03/21/17. Cocaine IV 1 oz one time on 03/17/17 and Subutex at [facility] on 02/20/17. She is receiving a 5 day Ativan and 5 day Subutex taper and tolerating well. Per endorsement, she received PRN Zofran, Miralax, and Clonidine. Pt is alert and oriented x4, breathing is even and unlabored. Safety measures in place. Will continue to monitor.
[2017-03-25] MEDS: DOXEPIN 100 MG CAPSULE PO SCH (20:38)
--- NOTE | 2017-03-25 21:15 | NUR ---
PRN CLONIDINE Pt complains of increased anxiety/agitation. PRN Clonidine administered as ordered. Safety measures in place. Will continue to monitor.
--- NOTE | 2017-03-25 22:15 | NUR ---
PRN REASSESSMENT PRN medication effective. Pt lying comfortably in bed watching TV. Reports decrease in anxiety. Safety measures in place. Will continue to monitor.
--- NOTE | 2017-03-26 07:00 | NUR ---
END OF SHIFT Pt is lying in bed with eyes closed and is asleep. She continues on a 5 day Ativan and 5 day Subutex taper and tolerating well. She complained of anxiety and received PRN Clonidine. She slept a total of 7 hrs, intake:2000mL, Void:x4, BM:0, COWS: 7, CIWA:6. Pt remains alert and oriented x4, breathing is even and unlabored. Safety measures in place. Endorsed to AM shift.
--- NOTE | 2017-03-26 07:10 | NUR ---
Start of shift note Received report from night nurse. Pt is a 31 yo female, presenting to [facility] for Opiate/Benzo withdrawal. Pt has NKA, is on Full code status, and on Regular diet. Pt has no medical History to report. Pt is on Fall and Seizure precautions. Pt is on 5 day Subutex and 5 day Ativan tapers, tolerated well. PRN clonidine 0.1mg po given on PM shift, Last COWS 7 CIWA 6 @0400. Patient is asleep in bed at this time, Respirations even and unlabored. Will continue to monitor and follow MD plan of care.
[2017-03-26 08:00] VITALS: BP 100/61
[2017-03-26] MEDS: GABAPENTIN 300 MG CAPSULE PO SCH ×3 (08:31→21:06)
[2017-03-26] MEDS: ESCITALOPRAM OXALATE 10 MG TABLET PO SCH (08:31)
[2017-03-26] MEDS: NITROFURANTOIN/NITROFURAN MAC 100 MG CAPSULE PO SCH ×2 (08:31→21:05)
[2017-03-26] MEDS: BUPRENORPHINE HCL 2 MG TAB.SUBL SL SCH ×3 (08:31→21:05)
[2017-03-26] MEDS: CLONIDINE HCL 0.1 MG TABLET PO PRN ×2 (08:36→14:30)
--- NOTE | 2017-03-26 08:36 | NUR ---
PRN PRN CLONIDINE 0.1MG PO GIVEN FOR COMPLAINTS OF ANXIETY, WILL REASSESS
[2017-03-26] MEDS ORDERED: LORAZEPAM 1 MG TABLET PO SCH (09:00)
--- NOTE | 2017-03-26 09:36 | NUR ---
PRN REASSESS CLONIDINE 0.1MG EFFECTIVE PER PT REPORT, SHE IS LESS ANXIOUS
--- NOTE | 2017-03-26 09:43 | NUR ---
Therapist prompted client about group times. Client plans to attend all groups today.
[2017-03-26 12:00] VITALS: BP 97/50
[2017-03-26] MEDS: HYDROXYZINE PAMOATE 25 MG CAPSULE PO PRN (12:15)
[2017-03-26] MEDS: METHOCARBAMOL 750 MG TABLET PO PRN (12:15)
--- NOTE | 2017-03-26 12:15 | NUR ---
PRN ROBAXIN /VISTARIL ROBAXIN 750MG PO GIVEN FOR MUSCLE ACHES 5/10 AND VISTARIL 25MG PO GIVEN FOR ANXIETY, WILL CONTINUE TO MONITOR
--- NOTE | 2017-03-26 13:15 | NUR ---
PRN REASSESS PATIENT ASLEEP IN BED, BREATHING EVEN AND UNLABORED, MEDICATION EFFECTIVE. SIDE RAILS UP X 2 CALL LIGHT WITHIN REACH
[2017-03-26 14:30] VITALS: BP 105/63
[2017-03-26] MEDS: LORAZEPAM 1 MG TABLET PO SCH ×2 (14:30→21:05)
--- NOTE | 2017-03-26 14:30 | NUR ---
PRN CLONIDINE 0.1MG CLONIDINE PO GIVEN PER PT REQUEST FOR ANXIETY, WILL CONTINUE TO MONITOR
--- NOTE | 2017-03-26 15:30 | NUR ---
PRN REASSESS CLONIDINE 0.1MG PO EFFECTIVE PATIENT STATES SHE FEELS LESS ANXIOUS, WILL CONTINUE TO MONITOR
[2017-03-26 16:00] VITALS: BP 111/62
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
--- NOTE | 2017-03-26 18:49 | NUR ---
End of shift note: Patient is a 31 year old female, presenting to [facility] for Opiate/Benzo withdrawal. Patient has NKA, is on Full code status, and on Regular diet. Pt has no medical history to report. Pt is on Fall and Seizure precautions. Pt is on a 5 day Subutex and 5 day Ativan tapers tolerated well. PRN medications given on this shift : Clonidine 0.1mg PO , Robaxin 750mg PO , Vistaril 25mg PO . Last COWS 4 CIWA 6 @1600. Patient had a fluid intake of 1500 ML , 3voids and 0 BM. VS stable BP 111/62 HR 71 RR 14 T98. Patient attended groups today. Bed in low locked position with side rails up x 2 and call light within reach. Will continue to monitor and follow MD plan of care. Endorsed to Night nurse.
[2017-03-26 20:00] VITALS: BP 114/62
[2017-03-26] MEDS: CLONIDINE HCL 0.1 MG TABLET PO SCH (21:06)
[2017-03-26] MEDS: DOXEPIN 100 MG CAPSULE PO SCH (21:12)
[2017-03-27] VITALS (7 sets, daily range): BP systolic 93–109; BP diastolic 48–69
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
--- NOTE | 2017-03-27 07:10 | NUR ---
Start of Shift Report from the night nurse: pt is 31 y/o female here for heroin, Xanax, Cocaine & Subutex; 5 day Ativan and Subutex tapers ordered. Pt is a full code, regular diet, fall and seizure precautions ordered. HHx: smoker, relapses x 4. V/S stable. Skin is not intact with bruise on right neck, no open wounds noted. No PRN's given. Last COWS 6 CIWA 7. Pt is asleep in room.
[2017-03-27] MEDS: CLONIDINE HCL 0.1 MG TABLET PO SCH ×2 (09:00→21:23)
[2017-03-27] MEDS ORDERED: LORAZEPAM 1 MG TABLET PO SCH (09:00)
[2017-03-27] MEDS ORDERED: BUPRENORPHINE HCL 2 MG TAB.SUBL SL SCH (09:00)
[2017-03-27] MEDS: GABAPENTIN 300 MG CAPSULE PO SCH ×3 (09:05→21:22)
[2017-03-27] MEDS: NITROFURANTOIN/NITROFURAN MAC 100 MG CAPSULE PO SCH ×2 (09:05→21:23)
[2017-03-27] MEDS: ESCITALOPRAM OXALATE 10 MG TABLET PO SCH (09:05)
[2017-03-27] MEDS: CLONIDINE HCL 0.1 MG TABLET PO PRN (10:12)
[2017-03-27] MEDS ORDERED: NALT50TA PO (11:31)
[2017-03-27] MEDS ORDERED: NITR100C11 PO (16:12)
[2017-03-27] MEDS ORDERED: DOXE100C10 PO (16:12)
[2017-03-27] MEDS ORDERED: METH-406 PO (16:12)
[2017-03-27] MEDS ORDERED: CLON0.1T14 PO (16:12)
[2017-03-27] MEDS ORDERED: GABA-534 PO (16:12)
[2017-03-27] MEDS ORDERED: IBUP-1955 PO (16:12)
[2017-03-27] MEDS ORDERED: HYDR-3895 PO (16:12)
[2017-03-27] MEDS ORDERED: DICY20TA28 PO (16:12)
--- NOTE | 2017-03-27 16:30 | NUR ---
Medication Non-Administration After group therapy the pt refused the gabapentin 600mg scheduled at 1500pm.
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
--- NOTE | 2017-03-27 19:15 | NUR ---
START OF SHIFT NOTE : Patient is a 31 year old female, admitted to [facility] on 03/23/2017 for Benzodiazepines, Opioid, and Cocaine dependence. Patient completed ordered 5 Day Ativan and 5 Day Subutex Taper which tolerated well without ASE. Patient reports NKA. Patient is on Full code, Regular Diet, Fall and Seizures Precautions. Patient denies Seizures History. PMH: Anxiety, Depression. Patient is alert and oriented x4 with stable gait. Patient complains of sleeplessness , increased level of anxiety. Patient denies SI/HI. Pt. will be D/C tomorrow in A.M. All needs met. Safety measures on place. Call light within reach, bed in lowest position and locked, padded rails up bilaterally.
--- NOTE | 2017-03-27 21:00 | NUR ---
PRN VISTARIL PRN Vistaril 25 mg 1 capsule PO administrated for anxiety with full glass of water as ordered. Patient tolerated well. All needs met. Safety measures on place. Call light within reach, bed in lowest position and locked, padded rails up bilaterally. Will continue to monitor closely.
[2017-03-27] MEDS: HYDROXYZINE PAMOATE 25 MG CAPSULE PO PRN (21:22)
[2017-03-27] MEDS: DOXEPIN 100 MG CAPSULE PO SCH (21:22)
--- NOTE | 2017-03-27 22:00 | NUR ---
RE-ASSESSMENT Pt is sleeeping, RR=16, unlabored and even. All needs met. Safety measures on place. Call light within reach, bed in lowest position and locked, padded rails up bilaterally rails up bilaterally. Will continue to monitor closely.
--- NOTE | 2017-03-28 07:00 | NUR ---
Patient is a 31 year old female, admitted to [facility] on 03/23/2017 for Benzodiazepines, Opioid, and Cocaine dependence. Patient completed ordered 5 Day Ativan and 5 Day Subutex Taper which tolerated well without ASE. Patient reports NKA. Patient is on Full code, Regular Diet, Fall and Seizures Precautions. Patient denies Seizures History. PMH: Anxiety, Depression . Pt remains compliant with the treatment plan. PRN Vistaril given during my shift. V/S remain WNL. RR=16, even and unlabored, lungs clear upon auscultation, abdomen soft and non- distended. Pt denies nausea, vomiting and diarrhea. COWS, CIWA taken when pt. was alert during the night, LAST COWS=2 , CIWA=2 at 0400 , INTAKE=1,495 ml, voided x 3, slept 8 hours. Safety measures in place : bed on lowest position with side rails x2 up for safety, call light within reach. Will continue to monitor closely and offer help.
--- NOTE | 2017-03-28 07:40 | NUR ---
BEGINNING OF SHIFT Patient endorsement report received from security shift manager nurse, all pertinent information discussed. Patient is a 31 year old female with admitting Dx: Opiate/BZO dependence. with substance use of: cocaine, and Subutex. Patient currently under close observation, no ongoing taper at this time, Patient completed 5 day Subutex and 5 day Ativan taper as ordered, and is scheduled to be discharged this morning. Per security shift manager patient with last ciwa score of: 2, last cow score of: 2 received PRN: Vistaril. Slept for 8 hours. Fall and seizure precautions observed at all times. Patient received awake, alert and oriented x4, educated regarding plan of care for the day, will continue to monitor closely. safety measures in place.
[2017-03-28 08:09] VITALS: BP 108/70
[2017-03-28 08:29] VITALS: BP 108/70
[2017-03-28] MEDS: NITROFURANTOIN/NITROFURAN MAC 100 MG CAPSULE PO SCH (08:29)
[2017-03-28] MEDS: ESCITALOPRAM OXALATE 10 MG TABLET PO SCH (08:29)
[2017-03-28] MEDS: CLONIDINE HCL 0.1 MG TABLET PO SCH (08:29)
[2017-03-28] MEDS: GABAPENTIN 300 MG CAPSULE PO SCH (08:29)
--- NOTE | 2017-03-28 09:32 | NUR ---
DISCHARGE Patient discharged off the unit at 0932, prior to discharge patient was provided with teaching and instructions regarding all discharge instructions with good verbal understanding. Patient discharged to able to change in stable condition, not in any apparent acute distress. patient with no s/sx of withdrawal. vital signs WNL. patients prescriptions, home medications and instructions were placed in patients personal duffel bag. patient off the unit at 0932.
== END 2017-03-28 09:32 | disposition other institution (70) | DRG 895 ==
LOC: SRC 14:36
PROVIDERS: ADMIT Internal Medicine; ATTEND Internal Medicine
PROC: HZ2ZZZZ Detoxification Services for Substance Abuse Treatment (ICD-10-PCS; principal; 2017-03-23)
PROC: HZ41ZZZ Group Counseling for Substance Abuse Treatment, Behavioral (ICD-10-PCS; 2017-03-24)
PROC: HZ31ZZZ Individual Counseling for Substance Abuse Treatment, Behavioral (ICD-10-PCS; 2017-03-26)
DX: F11.23 Opioid dependence with withdrawal (principal); Z86.74 Personal history of sudden cardiac arrest; F33.2 Major depressive disorder, recurrent severe without psychotic features; N30.01 Acute cystitis with hematuria; F13.230 Sedative, hypnotic or anxiolytic dependence with withdrawal, uncomplicated; F10.21 Alcohol dependence, in remission; F17.210 Nicotine dependence, cigarettes, uncomplicated; G47.00 Insomnia, unspecified; Z87.440 Personal history of urinary (tract) infections; Z91.89 Other specified personal risk factors, not elsewhere classified; Z79.899 Other long term (current) drug therapy; F41.9 Anxiety disorder, unspecified; F15.11 Other stimulant abuse, in remission
CPT/HCPCS: 36415; 70030-TC; 80307; 80346; 80361; 83735; 84703; 85025; 86592; 86705; 86803; 87077; 87086; 87340; 87806; 93005; G0480; J8499; Q0162